=== PATIENT | female | born 1945 | race Caucasian/White ===

== ENCOUNTER 2016-04-29 09:41 | Outpatient (RCR) | payer BC ==
--- OUTSIDE RECORDS SUMMARY | 2016-02-03 09:06 | XMS REPORT | Continuity of Care Document ---
Author Author [facility] Organization [facility] Address Unknown Phone Unavailable Support Name Relationship Address Phone DWAYNE SPARKS MD Caregiver [address] [place] [address] KIANA LEVIN DO Caregiver [address] [place] [address] DIANE BULLOCK Next Of Kin [address] [place] [address] Insurance Providers Payer Name Policy Number Subscriber Name Relationship [facility] [id number] Carolyn Bullock 20 Self / Same As Patient Advance Directives Directive Response Recorded Date/Time Advance Directives No 06/11/14 11:05am Health Care Power of Library Aide No 06/11/14 11:05am Organ Donor Yes 06/11/14 11:05am Resuscitation Status Full Code 06/11/14 11:05am Problems No known problems or medical conditions. Medications Medication Dose Route Sig Days/Qty Instructions Order Date Discontinued Date Status Calcium Carbonate/Vitamin D3 1 Each PO DAILY 01/17/12 Active [place]-3 Fatty Acids/Fish Oil 1 Each PO DAILY 01/17/12 Active Amlodipine/Benazepril HCl 1 Each PO DAILY 01/17/12 Active Simvastatin 40 Mg PO BEDTIME 01/17/12 Active Acetaminophen/Hydrocodone Bitart 1 - 2 Ea PO Q4HR PRN 30 Qty 01/19/12 06/11/14 Discontinued Hydrochlorothiazide 25 Mg GT DAILY 06/09/14 Active Potassium Chloride 20 Meq PO DAILY 06/09/14 Active Social History Social History Problem Response Recorded Date/Time Recent Foreign Travel No 06/11/2014 11:05am Smoking Status Former Smoker 06/11/2014 11:05am Query Response Start Date Stop Date Smoking Status Former Smoker 05/01/1975 Hospital Discharge Instructions No hospital discharge instructions. Plan of Care No plan of care. Functional Status No functional status results. Allergies, Adverse Reactions, Alerts Allergen Type Severity Reaction Status Last Updated No Known Drug Allergies Active 01/17/12 Immunizations Name Given Type Date of Pneumonia Vaccine 04/16/14 Historical Date of Influenza Vaccine 02/11/14 Historical Vital Signs Acute Vital Signs Vital Response Date/Time Temperature (Fahrenheit) 97.7 degrees F (97.6 - 99.5) Temperature (Calculated Celsius) 36.74415 degrees C (36.4 - 37.5) Temperature Source Tympanic Pulse Rate (adult) 75 bpm (60 - 90) Respiratory Rate 18 bpm (12 - 24) O2 Sat by Pulse Oximetry 97 % (88 - 100) Blood Pressure 120/71 mm Hg Pain Pain Intensity 0 Height (Feet) 5 feet Height (Inches) 10.00 inches Height (Calculated Centimeters) 177.773166 cm Weight (Pounds) 247 pounds Weight (Calculated Grams) 007655.317 gm Weight (Calculated Kilograms) 112.575976 kilograms Height 5 ft 10 in Weight 247 lb Body Mass Index 35.4 kg/m^2 Results Laboratory Results Test Name Result Units Flags Reference Collection Date/Time Result Date/ Time Comments White Blood Count 4.3 10^3/uL 4.3-11.0 05/20/2014 8:05/20/2014 8: 36am Red Blood Count 4.56 10^6/uL 4.35-5.85 05/20/2014 8:05/20/2014 8: 36am Hemoglobin 13.8 G/DL 11.5-16.0 05/20/2014 8:05/20/2014 8:36am Hematocrit 41 % 35-52 05/20/2014 8:05/20/2014 8:36am Mean Corpuscular Volume 90 FL 80-99 05/20/2014 8:05/20/2014 8: 36am Mean Corpuscular Hemoglobin 30 PG 25-34 05/20/2014 8:05/20/2014 8: 36am Mean Corpuscular Hemoglobin Concent 34 G/DL 32-36 05/20/2014 8: 8:36am Red Cell Distribution Width 12.0 % 10.0-14.5 05/20/2014 8:2014 8:36am Platelet Count 335 10^3/uL 130-400 05/20/2014 8:05/20/2014 8:36am Mean Platelet Volume 9.2 FL 7.4-10.4 05/20/2014 8:05/20/2014 8: 36am Neutrophils (%) (Auto) 69 % 42-75 05/20/2014 8:05/20/2014 8:36am Lymphocytes (%) (Auto) 19 % 12-44 05/20/2014 8:05/20/2014 8:36am Monocytes (%) (Auto) 8 % 0-12 05/20/2014 8:05/20/2014 8:36am Eosinophils (%) (Auto) 4 % 0-10 05/20/2014 8:05/20/2014 8:36am Basophils (%) (Auto) 1 % 0-10 05/20/2014 8:05/20/2014 8:36am Neutrophils # (Auto) 2.9 X 10^3 1.8-7.8 05/20/2014 8:05/20/2014 8: 36am Lymphocytes # (Auto) 0.8 X 10^3 L 1.0-4.0 05/20/2014 8:05/20/2014 8: 36am Monocytes # (Auto) 0.3 X 10^3 0.0-1.0 05/20/2014 8:05/20/2014 8: 36am Eosinophils # (Auto) 0.2 10^3/uL 0.0-0.3 05/20/2014 8:05/20/2014 8 :36am Basophils # (Auto) 0.0 10^3/uL 0.0-0.1 05/20/2014 8:05/20/2014 8: 36am Sodium Level 138 MMOL/L 135-145 05/20/2014 8:05/20/2014 9:03am Potassium Level 3.7 MMOL/L 3.6-5.0 05/20/2014 8:05/20/2014 9:03am Chloride Level 105 MMOL/L 98-107 05/20/2014 8:05/20/2014 9:03am Carbon Dioxide Level 25 MMOL/L 21-32 05/20/2014 8:05/20/2014 9: 03am Blood Urea Nitrogen 12 MG/DL 7-18 05/20/2014 8:05/20/2014 9:03am Creatinine 0.90 MG/DL 0.60-1.30 05/20/2014 8:05/20/2014 9:03am BUN/Creatinine Ratio 13 05/20/2014 8:05/20/2014 9:03am Estimat Glomerular Filtration Rate > 60 05/20/2014 8:2014 9:03am GFR INTERPRETIVE DATA UNITS FOR ESTIMATED GFR (eGFR): mL/min/1.73 M2 REFERENCE RANGE FOR ESTIMATED GFR (eGFR) eGFR NORMAL eGFR >60 MODERATELY DECREASED eGFR 30-59 SEVERLY DECREASED eGFR 15-29 KIDNEY FAILURE <15 (OR DIALYSIS) Glucose Level 123 MG/DL H 70-105 05/20/2014 8:05/20/2014 9:03am Calcium Level 9.9 MG/DL 8.5-10.1 05/20/2014 8:05/20/2014 9:03am Total Bilirubin 0.6 MG/DL 0.1-1.0 05/20/2014 8:05/20/2014 9:03am Alkaline Phosphatase 68 U/L 40-136 05/20/2014 8:05/20/2014 9:03am Aspartate Amino Transf (AST/SGOT) 18 U/L 5-34 05/20/2014 8:2014 9:03am Alanine Aminotransferase (ALT/SGPT) 26 U/L 0-55 05/20/2014 8:05/20 9:03am Total Protein 7.3 G/DL 6.4-8.2 05/20/2014 8:05/20/2014 9:03am Albumin 4.1 G/DL 3.2-4.5 05/20/2014 8:05/20/2014 9:03am Triglycerides Level 143 MG/DL <150 05/20/2014 8:05/20/2014 9:04am Cholesterol Level 154 MG/DL < 200 05/20/2014 8:05/20/2014 9:04am HDL Cholesterol 38 MG/DL L 40-60 05/20/2014 8:2015 9:04am LDL Cholesterol Direct 94 MG/DL 1-129 05/20/2014 8:28am 05/20/2014 9: 04am VLDL Cholesterol 29 MG/DL 5-40 05/20/2014 8:28am 05/20/2014 9:04am Procedures Procedure Status Date Provider(s) COLONOSCOPY AND BIOPSY completed 06/09/14 DWAYNE SPARKS MD Examination under anesthesia completed 06/11/14 DWAYNE SPARKS MD Cardiac event recording completed 06/11/14 ANSHU JOHNSON HEDGE FUND ACCOUNTANT Tracing only of electrocardiogram completed 06/11/14 ANSHU JOHNSON HEDGE FUND ACCOUNTANT Encounters Encounter Location Date/Time Registered Surgical Day Care [facility] 06/11/14 11:03am Registered Clinic [facility] 06/11/14 8:33am Registered Clinic [facility] 06/10/14 2:16pm Registered Surgical Day Care [facility] 06/09/14 10:51am Registered Clinic [facility] 06/05/14 5:48am Registered Recurring [facility] 06/03/14 11:00am Registered Clinic [facility] 05/20/14 7:55am Registered Clinic [facility] 05/20/14 7:52am
[~2016-04-29 09:41] MED LIST: AMLO1CAP4 PO; AMLO1CAP8 PO; AMLO5TAB2 PO; CALC625T PO; CALTRATE 600 +1 EACH PO; HCT25T GT; HYDR-3454 PO; HYDR-3583 PO; HYDR12.56 PO; L.AC1CAP6 PO; OMEG1CAP51 PO; POTA20TA15 PO; SIMV20TA3 PO; SIMV40TA4 PO
[2016-04-29 10:03] LABS: BASOPHILS % (AUTO) 1 % (0-10); EOSINOPHILS # (AUTO) 0.1 10^3/uL (0.0-0.3); EOSINOPHILS % (AUTO) 2 % (0-10); LYMPHOCYTES % (AUTO) 23 % (12-44); MEAN CORPUSCULAR HEMOGLOBIN 31 PG (25-34); MEAN CORPUSCULAR HGB CONC 34 G/DL (32-36); MEAN CORPUSCULAR VOLUME 91 FL (80-99); MEAN PLATELET VOLUME 10.1 FL (7.4-10.4); MONOCYTES # (AUTO) 0.4 X 10^3 (0.0-1.0); MONOCYTES % (AUTO) 9 % (0-12); NEUTROPHILS % (AUTO) 65 % (42-75); PLATELET COUNT 200 10^3/uL (130-400); RED BLOOD COUNT 4.33 10^6/uL (4.35-5.85); RED CELL DISTRIBUTION WIDTH 12.5 % (10.0-14.5); WHITE BLOOD COUNT 4.6 10^3/uL (4.3-11.0)
[2016-04-29 10:30] LABS: ALANINE AMINOTRANSFERASE 23 U/L (0-55); ALBUMIN 4.3 G/DL (3.2-4.5); ANION GAP 10 MMOL/L (5-14); ASPARTATE AMINO TRANSFERASE 21 U/L (5-34); BILIRUBIN,TOTAL 0.8 MG/DL (0.1-1.0); BLOOD UREA NITROGEN 20 MG/DL (7-18); BUN/CREATININE RATIO 26; CALCIUM 9.5 MG/DL (8.5-10.1); CARBON DIOXIDE 20 MMOL/L (21-32); CHLORIDE 108 MMOL/L (98-107); CREATININE SERUM 0.77 MG/DL (0.60-1.30); GFR ESTIMATED > 60; GLUCOSE 87 MG/DL (70-105); POTASSIUM 3.9 MMOL/L (3.6-5.0); SODIUM 138 MMOL/L (135-145); TOTAL PROTEIN 6.8 G/DL (6.4-8.2)
== END 2016-05-03 | disposition home or self-care (01) ==
LOC: ONC 09:41
PROVIDERS: ATTEND Internal Medicine Hematology & Oncology
DX: C20 Malignant neoplasm of rectum (principal); E04.1 Nontoxic single thyroid nodule; I10 Essential (primary) hypertension; E78.5 Hyperlipidemia, unspecified; Z79.899 Other long term (current) drug therapy; Z45.2 Encounter for adjustment and management of vascular access device
CPT/HCPCS: 36591; 80053; 82378; 85025; 96523; 99213

== ENCOUNTER → 2016-05-09 | Outpatient (CLI) | payer MEDICARE, OTHER ==
[~2016-05-09] MED LIST changes: +BARIUM SUSPENSION 2.1% (VANILLA SILQ) 450 ML PO ONE; +BENA20TA2 PO; +CATHETER FLUSH 10 ML SYR IV PRN; +IOHEXOL 350 MG/ML 100 ML (OMNIPAQUE 350) VIAL IV ONE; +LOPE-134 PO; +MULT1CAP27 PO; +NS 100 ML (IVPB) BAG IV ONE
--- OUTSIDE RECORDS SUMMARY | 2016-05-09 10:05 | XMS REPORT | Continuity of Care Document ---
Author Author [facility] Organization [facility] Address Unknown Phone Unavailable Support Name Relationship Address Phone DWAYNE SPARKS MD Caregiver [address] [place] [address] KIANA LEVIN DO Caregiver [address] [place] [address] DIANE BULLOCK Next Of Kin [address] [place] [address] Insurance Providers Payer Name Policy Number Subscriber Name Relationship [facility] [id number] Carolyn Bullock 20 Self / Same As Patient Advance Directives Directive Response Recorded Date/Time Advance Directives No 06/11/14 11:05am Health Care Power of Healthcare Insurance Sales Agent No 06/11/14 11:05am Organ Donor Yes 06/11/14 11:05am Resuscitation Status Full Code 06/11/14 11:05am Problems No known problems or medical conditions. Medications Medication Dose Route Sig Days/Qty Instructions Order Date Discontinued Date Status Calcium Carbonate/Vitamin D3 1 Each PO DAILY 01/17/12 Active [place]-3 Fatty Acids/Fish Oil 1 Each PO DAILY [...] F (97.6 - 99.5) Temperature (Calculated Celsius) 36.13796 degrees C (36.4 - 37.5) Temperature Source Tympanic Pulse Rate (adult) 75 bpm (60 - 90) Respiratory Rate 18 bpm (12 - 24) O2 Sat by Pulse Oximetry 97 % (88 - 100) Blood Pressure 120/71 mm Hg Pain Pain Intensity 0 Height (Feet) 5 feet Height (Inches) 10.00 inches Height (Calculated Centimeters) 177.508757 cm Weight (Pounds) 247 pounds Weight (Calculated Grams) 619638.317 gm Weight (Calculated Kilograms) 112.506992 kilograms Height 5 ft 10 in Weight [...] Cardiac event recording completed 06/11/14 ANSHU JOHNSON JEWEL STRIPPER Tracing only of electrocardiogram completed 06/11/14 ANSHU JOHNSON JEWEL STRIPPER Encounters Encounter Location Date/Time Registered Surgical Day Care [facility] 06/11/14 11:03am Registered Clinic [facility] 06/11/14 8:33am Registered Clinic [facility] 06/10/14 2:16pm Registered Surgical Day Care [facility] 06/09/14 10:51am Registered Clinic [facility] 06/05/14 5:48am Registered Recurring [facility] 06/03/14 11:00am Registered Clinic [facility] 05/20/14 7:55am Registered Clinic [facility] 05/20/14 7:52am
--- NOTE | 2016-05-09 13:41 | Diagnostic Imaging Report ---
PROCEDURE: CT chest, abdomen, and pelvis with contrast. TECHNIQUE: Multiple contiguous axial images were obtained through the chest, abdomen, and pelvis after the administration of intravenous contrast. INDICATION: Breast cancer and rectal cancer. COMPARISON: CT chest, abdomen and pelvis of 11/06/2015 and 08/15/14. CT CHEST FINDINGS: Stable heterogeneous enlargement of the left thyroid gland which extends into the superior aspect of the mediastinum. No supraclavicular or axillary lymphadenopathy. Stable left pectoral subclavian Port-A-Cath. No mediastinal, hilar or juxtaphrenic lymphadenopathy. Normal heart size without pericardial effusion. Normal-caliber thoracic aorta with scattered atherosclerotic calcifications. No pleural effusion or pneumothorax. No pulmonary mass or consolidation. No suspicious pulmonary nodules that would suggest parenchymal metastases. No endoluminal lesion within the trachea or central bronchi. No concerning osseous lesions in the thorax. IMPRESSION: 1. Stable CT chest without evidence of metastatic disease. 2. Asymmetrically enlarged left thyroid goiter resulting in tracheal deviation is unchanged. CT ABDOMEN AND PELVIS FINDINGS: The liver, spleen, pancreas and adrenals are normal. Cholelithiasis without evidence of acute cholecystitis is unchanged. Kidneys enhance symmetrically without suspicious mass lesion. Cysts in the upper pole of the left kidney are unchanged. No obstructive uropathy. Urinary bladder is distended without wall thickening. Status post hysterectomy. Continued decreased size of left ovarian cyst now measuring 1.5 x 1.2 cm (previously 2.2 x 1.8 cm). No bowel obstruction. Stomach is partially distended with contrast material and there is no discrete gastric wall thickening. Status post partial colon resection with colocolonic anastomosis in the distal colon. No soft tissue mass lesion near the anastomosis to indicate localized recurrence. No abdominal or pelvic lymphadenopathy. Normal-caliber abdominal aorta with moderate atherosclerotic disease. No concerning osseous lesions in the abdomen or pelvis. IMPRESSION: 1. Stable CT abdomen and pelvis without evidence of local recurrence or intra-abdominal metastases. 2. Cholelithiasis. 3. Continued decreased size of small left ovarian cyst. Dictated by: Dictated on workstation # [id number]
== END ==
LOC: RAD 10:02
PROVIDERS: ATTEND Internal Medicine Hematology & Oncology
DX: C20 Malignant neoplasm of rectum (principal); C21.1 Malignant neoplasm of anal canal
CPT/HCPCS: 71260; 74177

== ENCOUNTER 2016-06-30 05:34 | Outpatient (CLI) | payer MEDICARE, OTHER ==
[~2016-06-30] VITALS: Ht 177.8 cm; Wt 88.5 kg
[~2016-06-30 05:34] MED LIST changes: -BARIUM SUSPENSION 2.1% (VANILLA SILQ) 450 ML PO ONE; -BENA20TA2 PO; -CATHETER FLUSH 10 ML SYR IV PRN; -IOHEXOL 350 MG/ML 100 ML (OMNIPAQUE 350) VIAL IV ONE; -LOPE-134 PO; -MULT1CAP27 PO; -NS 100 ML (IVPB) BAG IV ONE
--- OUTSIDE RECORDS SUMMARY | 2016-06-30 05:38 | XMS REPORT | Continuity of Care Document ---
Author Author [facility] Organization [facility] Address Unknown Phone Unavailable Support Name Relationship Address Phone DWAYNE SPARKS MD Caregiver [address] [place] [address] KIANA LEVIN DO Caregiver [address] [place] [address] DIANE BULLOCK Next Of Kin [address] [place] [address] Insurance Providers Payer Name Policy Number Subscriber Name Relationship [facility] [id number] Carolyn Bullock 20 Self / Same As Patient Advance Directives Directive Response Recorded Date/Time Advance Directives No 06/11/14 11:05am Health Care Power of Escalator Constructor No 06/11/14 11:05am Organ Donor Yes 06/11/14 11:05am Resuscitation Status Full Code 06/11/14 11:05am Problems No known problems or medical conditions. Medications Medication Dose Route Sig Days/Qty Instructions Order Date Discontinued Date Status Calcium Carbonate/Vitamin D3 1 Each PO DAILY 01/17/12 Active [place]-3 Fatty Acids/Fish Oil 1 Each PO DAILY [...] F (97.6 - 99.5) Temperature (Calculated Celsius) 36.68259 degrees C (36.4 - 37.5) Temperature Source Tympanic Pulse Rate (adult) 75 bpm (60 - 90) Respiratory Rate 18 bpm (12 - 24) O2 Sat by Pulse Oximetry 97 % (88 - 100) Blood Pressure 120/71 mm Hg Pain Pain Intensity 0 Height (Feet) 5 feet Height (Inches) 10.00 inches Height (Calculated Centimeters) 177.159104 cm Weight (Pounds) 247 pounds Weight (Calculated Grams) 454814.317 gm Weight (Calculated Kilograms) 112.891191 kilograms Height 5 ft 10 in Weight [...] Cardiac event recording completed 06/11/14 ANSHU JOHNSON VEGETABLE FARMWORKER Tracing only of electrocardiogram completed 06/11/14 ANSHU JOHNSON VEGETABLE FARMWORKER Encounters Encounter Location Date/Time Registered Surgical Day Care [facility] 06/11/14 11:03am Registered Clinic [facility] 06/11/14 8:33am Registered Clinic [facility] 06/10/14 2:16pm Registered Surgical Day Care [facility] 06/09/14 10:51am Registered Clinic [facility] 06/05/14 5:48am Registered Recurring [facility] 06/03/14 11:00am Registered Clinic [facility] 05/20/14 7:55am Registered Clinic [facility] 05/20/14 7:52am
[2016-06-30] MEDS ORDERED: MULT1CAP27 PO (10:01)
[2016-06-30] MEDS ORDERED: BENA20TA2 PO (10:01)
[2016-06-30] MEDS ORDERED: LOPE-134 PO (10:01)
== END 2016-06-30 10:03 ==
LOC: PREOP 05:34
PROVIDERS: ATTEND Surgery
DX: Z01.818 Encounter for other preprocedural examination (principal); C20 Malignant neoplasm of rectum

== ENCOUNTER 2016-07-04 06:59 | Day surgery (SDC) | payer MEDICARE, OTHER ==
[~2016-07-04] VITALS: Ht 177.8 cm; Wt 88.5 kg
[~2016-07-04 06:59] MED LIST changes: +BENA20TA2 PO; +LOPE-134 PO; +MULT1CAP27 PO
--- OUTSIDE RECORDS SUMMARY | 2016-07-04 07:03 | XMS REPORT | Continuity of Care Document ---
Author Author [facility] Organization [facility] Address Unknown Phone Unavailable Care Team Providers Care Manager Room Name Role Phone KIANA LEVIN DO PCP Insurance Providers Payer Name Policy Number Subscriber Name Relationship [employer] [id number] Carolyn Bullock 20 Self / Same As Patient Enter Insurance Name [id number] Carolyn Bullock Self / Same As Patient Advance Directives Directive Response Recorded Date/Time Advance Directives Yes 06/30/16 9:56am Health Care Power of Retail Sales Assistant Yes 06/30/16 9:56am Organ Donor Yes 06/30/16 9:56am Resuscitation Status Full Code 06/30/16 9:56am Problems No problem information available. Medications Current Home Medications Medication Dose Units Route Directions Days/Qty Instructions Start Date Calcium Carbonate/Vitamin D3 1 Each 1 Each Oral Every Other Day 17/04 [place]-3 Fatty Acids/Fish Oil 1 Each 1 Each Oral Daily 01/17/12 Simvastatin 20 Mg 20 Mg Oral Bedtime 06/19/15 L.acidoph & Paracasei,B.lactis 1 Each 1 Each Oral Daily 06/19/15 Benazepril Hcl 20 Mg 20 Mg Oral Daily 06/30/16 Multivitamin 1 Each 1 Each Oral Daily 06/30/16 Loperamide Hcl 2 Mg 1 Mg Oral Three Times A Day After Meals take 1/2 of 2mg tab 06/30/16 Past Home Medications Medication Directions Ordered Status Amlodipine/Benazepril Hcl 1 Each Capsule, 1 Each Oral Daily 01/17/12 Discontinued Simvastatin 40 Mg Tablet, 40 Mg Oral Bedtime 01/17/12 Discontinued Acetaminophen/Hydrocodone Bitart 1 Tab Tab, 1 - 2 Ea Oral Q4hr Prn 01/19/12 Discontinued Hydrochlorothiazide 25 Mg Tab, 25 Mg G Tube Daily 06/09/14 Discontinued Potassium Chloride 20 Meq Tab.prt.sr, 20 Meq Oral Daily 06/09/14 Discontinued Amlodipine Besylate/Benazepril 1 Each Capsule, 1 Each Oral Daily 06/19/15 Discontinued Calcium Polycarbophil 625 Mg Tablet, 1250 Mg Oral Three Times A Day 06/19/15 Discontinued Amlodipine Besylate 5 Mg Tablet, 5 Mg Oral Daily 12/14/15 Discontinued Hydrocodone/Acetaminophen 1 Each Tablet, 1 Each Oral Every 4HRS as needed for Pain 12/16/15 Discontinued Social History Social History Problem Response Recorded Date/Time Alcohol Use Rarely Uses 06/30/2016 9:56am Recreational Drug Use No 06/30/2016 9:56am Recent Foreign Travel No 06/30/2016 9:56am Recent Infectious Disease Exposure No 06/30/2016 9:56am Sexually Transmitted Disease No 06/30/2016 9:56am HIV/AIDS No 06/30/2016 9:56am Smoking Status Former Smoker 06/30/2016 9:56am Do you dip or chew tobacco? No 06/22/2015 7:51am Type Used Cigarettes 06/30/2016 9:56am Recent Hopitalizations No 06/30/2016 9:56am Sexually Transmitted Disease No 06/30/2016 9:56am Hx Sexually Transmitted Disorders No 06/11/2014 11:05am Query Response Start Date Stop Date Smoking Status Former Smoker Hospital Discharge Instructions No hospital discharge instructions. Plan of Care Discharge Date 06/30/16 10:03am Prescriptions See Medication Section Functional Status No functional status results. Allergies, Adverse Reactions, Alerts No known allergies. Immunizations No immunization records. Vital Signs Acute Vital Signs Vital Response Date/Time Height (Feet) 5 feet 06/30/2016 9:55am Height (Inches) 10.00 inches 06/30/2016 9:55am Height (Calculated Centimeters) 177.097220 cm 06/30/2016 9:55am Weight (Pounds) 195 pounds 06/30/2016 9:55am Weight (Ounces) 0.0 oz 06/30/2016 9:55am Weight (Calculated Grams) 07383.51 gm 06/30/2016 9:55am Weight (Calculated Kilograms) 88.139953 kilograms 06/30/2016 9:55am Calculated BMI 28.0 06/30/2016 9:55am Results No known relevant diagnostic tests, laboratory data and/or discharge summary. Procedures No known history of procedures. Encounters Encounter Location Arrival/Admit Date Discharge/Depart Date Attending Provider Registered Clinic [facility] 06/30/16 5:34am DWAYNE SPARKS MD Registered Recurring [facility] 06/09/16 11:33am SHERWIN NOLAN MD
--- OUTSIDE RECORDS SUMMARY | 2016-07-04 07:03 | XMS REPORT | Continuity of Care Document ---
Author Author [facility] Organization [facility] Address Unknown Phone Unavailable Care Team Providers Care Rubber Boots And Shoes Repairer Name Role Phone KIANA LEVIN DO PCP Insurance Providers Payer Name Policy Number Subscriber Name Relationship [employer] [id number] Carolyn Bullock 20 Self / Same As Patient Enter Insurance Name [id number] Carolyn Bullock Self / Same As Patient Advance Directives Directive Response Recorded Date/Time Advance Directives Yes 06/30/16 9:56am Health Care Power of Screening Unit Registered Nurse Yes 06/30/16 9:56am Organ Donor Yes 06/30/16 9:56am Resuscitation Status Full Code 06/30/16 9:56am Problems No problem information available. Medications Current Home Medications Medication Dose Units Route Directions Days/Qty Instructions Start Date Calcium Carbonate/Vitamin D3 1 Each 1 Each Oral Every Other Day 17/04 [place]-3 Fatty Acids/Fish Oil 1 Each 1 Each [...] 10.00 inches 06/30/2016 9:55am Height (Calculated Centimeters) 177.828943 cm 06/30/2016 9:55am Weight (Pounds) 195 pounds 06/30/2016 9:55am Weight (Ounces) 0.0 oz 06/30/2016 9:55am Weight (Calculated Grams) 34445.51 gm 06/30/2016 9:55am Weight (Calculated Kilograms) 88.953461 kilograms 06/30/2016 9:55am Calculated BMI 28.0 06/30/2016 9:55am Results No known relevant diagnostic tests, laboratory data and/or discharge summary. Procedures No known history of procedures. Encounters Encounter Location Arrival/Admit Date Discharge/Depart Date Attending Provider Registered Clinic [facility] 06/30/16 5:34am DWAYNE SPARKS MD Registered Recurring [facility] 06/09/16 11:33am SHERWIN NOLAN MD
[2016-07-04] MEDS ORDERED: NALOXONE 0.4 MG/ML 1 ML (NARCAN) VIAL IVP PRN (07:30)
[2016-07-04] MEDS ORDERED: FLUMAZENIL (ROMAZICON) 0.1 MG/ML 5 ML VIAL INJ PRN (07:30)
[2016-07-04] MEDS ORDERED: NS IV 500 ML 500 ML IV PRN (07:35)
[2016-07-04 07:40] VITALS: BP 147/91
[2016-07-04] MEDS ORDERED: MIDAZOLAM 2 MG/2 ML (VERSED) VIAL ONE ×3 (07:46→08:25)
[2016-07-04] MEDS ORDERED: fentaNYL INJECTION 100 MCG/2 ML AMP ONE (07:47)
[2016-07-04] MEDS: fentaNYL INJECTION 100 MCG/2 ML AMP IVP PRN ×2 (08:17→08:25)
[2016-07-04] MEDS: MIDAZOLAM 2 MG/2 ML (VERSED) VIAL IVP PRN ×3 (08:18→08:33)
--- NOTE | 2016-07-04 08:19 | Pre-Op Note & Conscious Sedat ---
Pre-Operative Progress Note H&P Reviewed The H&P was reviewed, patient examined and no changes noted. Date H&P Reviewed: Jul 04, 2016 Time H&P Reviewed: 08:18 Pre-Op Diagnosis: personal history of rectal cancer Conscious Sedation Pre-Proced ASA Class: 2 Airway Mallampati Classification: ([place] appropriate class) I. II. III, IV Lungs Heart ASA score ASA 1: a normal healthy patient ASA 2: a patient with a mild systemic disease (mid diabetes, controlled hypertension, obesity ASA 3: a patient with a severe systemic disease that limits activity (angina , COPD, prior Myocardial infarction) ASA 4: a patient with an incapacitating disease that is a constant threat to life (CHF, renal failure) ASA 5: a moribund patient not expected to survive 24 hrs. (ruptured aneurysm) ASA 6: a declared brain patient whose organs are being harvested. For emergent operations, add the letter E after the classification Grade 1 Sedation Plan: Discussed options with patient/fam Note The patient is an appropriate candidate to undergo the planned procedure, sedation, and anesthesia. The patient immediately re-assessed prior to indication. DWAYNE SPARKS MD Jul 04, 2016 8:19 am
--- NOTE | 2016-07-04 08:41 | Progress Note-Post Operative ---
Post-Operative Progess Note Pre-Operative Diagnosis personal history of rectal cancer Post-Operative Diagnosis internal hemorrhoids. Diffuse diverticulosis. Patent stapled anastomosis Post-Op Procedure Note Date of Procedure: Jul 04, 2016 Name of Procedure: colonoscopy to cecum Anesthesia Type sedation DWAYNE SPARKS MD Jul 04, 2016 8:41 am
--- NOTE | 2016-07-04 08:42 | Discharge Inst-Simple/Standard ---
Discharge Inst-Standard Discharge Medications New, Converted or Re-Newed RX: Other Patient Instructions/Follow Up Plan of Care/Instructions/FU: repeat colonoscopy in one year Activity as Tolerated: Yes Discharge Diet: No Restrictions DWAYNE SPARKS MD Jul 04, 2016 8:42 am
[2016-07-04 08:50] VITALS: BP 120/67
--- NOTE | 2016-07-04 09:15 | PROCEDURE REPORT ---
PROCEDURE PHYSICIAN: DWAYNE SPARKS DATE OF PROCEDURE: 07/04/2016 PROCEDURE: Surveillance colonoscopy. SURGEON: Dr. Sparks. 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 She came in for surveillance colonoscopy. Informed consent was obtained after reviewing the procedure in detail. DESCRIPTION OF PROCEDURE: She was placed in left lateral decubitus position and her vital signs were monitored. Conscious sedation was achieved using Versed and fentanyl. Digital rectal examination was unremarkable. The colonoscope was then introduced into the rectum and advanced to the cecum. It was then withdrawn slowly and the mucosa examined in a systematic fashion. The quality of bowel preparation was excellent. FINDINGS: 1. Internal hemorrhoids. 2. A patent anastomosis without any local recurrence. 3. Diffuse diverticulae. She tolerated the procedure well and was taken back to the nursing area in a stable condition. IMPRESSION: 1. Previous rectal carcinoma. 2. No polyps. 3. Recommend annual colonoscopy. Job ID: [id number] Dictated Date: 07/04/2016 08:40:28 Gaming Department Head Date: 07/04/2016 09:06:43 / tere KENT
[2016-07-04 09:20] VITALS: BP 121/73
[2016-07-04 09:30] VITALS: BP 121/73
== END 2016-07-04 09:30 | disposition home or self-care (01) ==
LOC: ENDO 06:59
PROVIDERS: ATTEND Surgery
DX: Z09 Encounter for follow-up examination after completed treatment for conditions other than malignant neoplasm (principal); Z85.048 Personal history of other malignant neoplasm of rectum, rectosigmoid junction, and anus; K64.8 Other hemorrhoids; K57.90 Diverticulosis of intestine, part unspecified, without perforation or abscess without bleeding

== ENCOUNTER → 2016-07-25 | Outpatient (CLI) | payer MEDICARE, OTHER ==
--- NOTE | 2016-07-25 11:33 | Diagnostic Imaging Report ---
PROCEDURE: US Carotid Duplex Bilateral. TECHNIQUE: Multiple real-time grayscale images were obtained over the carotid arteries in various projections bilaterally. Additional duplex Doppler and color Doppler images were also obtained. INDICATION: Carotid bruit. FINDINGS: There is a calcified atherosclerotic plaque along the carotid bifurcation seen more prominent on the right side. There is antegrade flow demonstrated in the vertebral arteries bilaterally. Color Doppler demonstrates patency of the common, internal and external carotid arteries bilaterally. Peak systolic velocities in the right ICA are 101, 101 and 81 cm/s from proximal to distal and on the left 103, 93, and 97 cm/s. ICA/CCA ratios are up to 0.8 on the right and also 0.8 on the left. IMPRESSION: Atherosclerotic plaque seen at the carotid bifurcation bilaterally with estimated underlying stenosis less than 40% bilaterally. Dictated by: Dictated on workstation # [id number]
== END ==
LOC: RAD 08:45
PROVIDERS: ATTEND Family Medicine
DX: I65.23 Occlusion and stenosis of bilateral carotid arteries (principal)
CPT/HCPCS: 93880

== ENCOUNTER 2016-08-04 11:19 | Outpatient (RCR) | payer MEDICARE, OTHER ==
--- OUTSIDE RECORDS SUMMARY | 2016-05-12 09:50 | XMS REPORT | Continuity of Care Document ---
Author Author [facility] Organization [facility] Address Unknown Phone Unavailable Support Name Relationship Address Phone DWAYNE SPARKS MD Caregiver [address] [place] [address] KIANA LEVIN DO Caregiver [address] [place] [address] DIANE BULLOCK Next Of Kin [address] [place] [address] Insurance Providers Payer Name Policy Number Subscriber Name Relationship [facility] [id number] Carolyn Bullock 20 Self / Same As Patient Advance Directives Directive Response Recorded Date/Time Advance Directives No 06/11/14 11:05am Health Care Power of Contract Graphic Designer No 06/11/14 11:05am Organ Donor Yes 06/11/14 11:05am Resuscitation Status Full Code 06/11/14 11:05am Problems No known problems or medical conditions. Medications Medication Dose Route Sig Days/Qty Instructions Order Date Discontinued Date Status Calcium Carbonate/Vitamin D3 1 Each PO DAILY 01/17/12 Active [place]-3 Fatty Acids/Fish Oil 1 Each PO DAILY [...] F (97.6 - 99.5) Temperature (Calculated Celsius) 36.79246 degrees C (36.4 - 37.5) Temperature Source Tympanic Pulse Rate (adult) 75 bpm (60 - 90) Respiratory Rate 18 bpm (12 - 24) O2 Sat by Pulse Oximetry 97 % (88 - 100) Blood Pressure 120/71 mm Hg Pain Pain Intensity 0 Height (Feet) 5 feet Height (Inches) 10.00 inches Height (Calculated Centimeters) 177.788809 cm Weight (Pounds) 247 pounds Weight (Calculated Grams) 624641.317 gm Weight (Calculated Kilograms) 112.018060 kilograms Height 5 ft 10 in Weight [...] Cardiac event recording completed 06/11/14 ANSHU JOHNSON RESIDENT PROGRAMS ASSISTANT Tracing only of electrocardiogram completed 06/11/14 ANSHU JOHNSON RESIDENT PROGRAMS ASSISTANT Encounters Encounter Location Date/Time Registered Surgical Day Care [facility] 06/11/14 11:03am Registered Clinic [facility] 06/11/14 8:33am Registered Clinic [facility] 06/10/14 2:16pm Registered Surgical Day Care [facility] 06/09/14 10:51am Registered Clinic [facility] 06/05/14 5:48am Registered Recurring [facility] 06/03/14 11:00am Registered Clinic [facility] 05/20/14 7:55am Registered Clinic [facility] 05/20/14 7:52am
[2016-08-04 11:46] LABS: BASOPHILS % (AUTO) 1 % (0-10); EOSINOPHILS # (AUTO) 0.2 10^3/uL (0.0-0.3); EOSINOPHILS % (AUTO) 4 % (0-10); LYMPHOCYTES % (AUTO) 20 % (12-44); MEAN CORPUSCULAR HEMOGLOBIN 31 PG (25-34); MEAN CORPUSCULAR HGB CONC 34 G/DL (32-36); MEAN CORPUSCULAR VOLUME 91 FL (80-99); MEAN PLATELET VOLUME 10.5 FL (7.4-10.4); MONOCYTES # (AUTO) 0.4 X 10^3 (0.0-1.0); MONOCYTES % (AUTO) 8 % (0-12); NEUTROPHILS # (AUTO) 3.2 X 10^3 (1.8-7.8); NEUTROPHILS % (AUTO) 67 % (42-75); PLATELET COUNT 191 10^3/uL (130-400); RED BLOOD COUNT 4.29 10^6/uL (4.35-5.85); RED CELL DISTRIBUTION WIDTH 12.5 % (10.0-14.5); WHITE BLOOD COUNT 4.7 10^3/uL (4.3-11.0)
[2016-08-04 12:10] LABS: ALANINE AMINOTRANSFERASE 21 U/L (0-55); ALBUMIN 4.1 G/DL (3.2-4.5); ANION GAP 7 MMOL/L (5-14); ASPARTATE AMINO TRANSFERASE 20 U/L (5-34); BILIRUBIN,TOTAL 0.9 MG/DL (0.1-1.0); BLOOD UREA NITROGEN 17 MG/DL (7-18); BUN/CREATININE RATIO 22; CALCIUM 9.4 MG/DL (8.5-10.1); CARBON DIOXIDE 25 MMOL/L (21-32); CHLORIDE 110 MMOL/L (98-107); CREATININE SERUM 0.76 MG/DL (0.60-1.30); GFR ESTIMATED > 60; GLUCOSE 80 MG/DL (70-105); SODIUM 142 MMOL/L (135-145); TOTAL PROTEIN 6.6 G/DL (6.4-8.2)
== END 2016-08-10 | disposition home or self-care (01) ==
LOC: ONC 11:19
PROVIDERS: ATTEND Internal Medicine Hematology & Oncology
DX: C20 Malignant neoplasm of rectum (principal); E04.1 Nontoxic single thyroid nodule; I10 Essential (primary) hypertension; E78.5 Hyperlipidemia, unspecified; Z79.899 Other long term (current) drug therapy; Z45.2 Encounter for adjustment and management of vascular access device
CPT/HCPCS: 80053; 82378; 84443; 85025; 96523; 99213

== ENCOUNTER 2016-11-07 10:38 | Outpatient (RCR) | payer MEDICARE, OTHER ==
[2016-11-07 10:54] LABS: BASOPHILS % (AUTO) 1 % (0-10); EOSINOPHILS # (AUTO) 0.2 10^3/uL (0.0-0.3); EOSINOPHILS % (AUTO) 3 % (0-10); LYMPHOCYTES % (AUTO) 21 % (12-44); MEAN CORPUSCULAR HEMOGLOBIN 31 PG (25-34); MEAN CORPUSCULAR HGB CONC 34 G/DL (32-36); MEAN CORPUSCULAR VOLUME 92 FL (80-99); MEAN PLATELET VOLUME 9.5 FL (7.4-10.4); MONOCYTES # (AUTO) 0.4 X 10^3 (0.0-1.0); MONOCYTES % (AUTO) 8 % (0-12); NEUTROPHILS # (AUTO) 3.3 X 10^3 (1.8-7.8); NEUTROPHILS % (AUTO) 67 % (42-75); PLATELET COUNT 214 10^3/uL (130-400); RED BLOOD COUNT 4.24 10^6/uL (4.35-5.85); RED CELL DISTRIBUTION WIDTH 12.7 % (10.0-14.5); WHITE BLOOD COUNT 4.9 10^3/uL (4.3-11.0)
[2016-11-07 11:31] LABS: ALANINE AMINOTRANSFERASE 21 U/L (0-55); ALBUMIN 4.1 GM/DL (3.2-4.5); ANION GAP 6 MMOL/L (5-14); ASPARTATE AMINO TRANSFERASE 17 U/L (5-34); BILIRUBIN,TOTAL 0.6 MG/DL (0.1-1.0); BLOOD UREA NITROGEN 14 MG/DL (7-18); BUN/CREATININE RATIO 20; CALCIUM 9.4 MG/DL (8.5-10.1); CARBON DIOXIDE 25 MMOL/L (21-32); CHLORIDE 108 MMOL/L (98-107); CREATININE SERUM 0.69 MG/DL (0.60-1.30); GFR ESTIMATED > 60; GLUCOSE 91 MG/DL (70-105); POTASSIUM 3.9 MMOL/L (3.6-5.0); SODIUM 139 MMOL/L (135-145); TOTAL PROTEIN 6.8 GM/DL (6.4-8.2)
== END 2016-11-09 | disposition home or self-care (01) ==
LOC: ONC 10:38
PROVIDERS: ATTEND Internal Medicine Hematology & Oncology
DX: C20 Malignant neoplasm of rectum (principal); E04.1 Nontoxic single thyroid nodule; I10 Essential (primary) hypertension; E78.5 Hyperlipidemia, unspecified; Z79.899 Other long term (current) drug therapy; Z45.2 Encounter for adjustment and management of vascular access device
CPT/HCPCS: 36591; 80053; 82378; 84439; 84443; 85025; 96523; 99213

== ENCOUNTER → 2016-11-08 | Outpatient (CLI) | payer MEDICARE, OTHER ==
[~2016-11-08] MED LIST changes: +BARIUM SUSPENSION 2.1% (VANILLA SILQ) 450 ML PO ONE; +CATHETER FLUSH 10 ML SYR IV PRN; +IOHEXOL 350 MG/ML 100 ML (OMNIPAQUE 350) VIAL IV ONE; +NS 100 ML (IVPB) BAG IV ONE
--- NOTE | 2016-11-08 13:50 | Diagnostic Imaging Report ---
PROCEDURE: CT chest with contrast, CT abdomen and pelvis with and without contrast. TECHNIQUE: Pre and post intravenous contrast axial imaging of the abdomen and pelvis and post contrast axial imaging of the chest were performed. INDICATION: Anorectal carcinoma. COMPARISON: Exam compared to 05/09/2016. FINDINGS: Chest: Heterogeneous enlargement of the left thyroid lobe deviates the trachea to the right in an unchanged fashion. No hilar or mediastinal lymphadenopathy. Some mild zones of subpleural scarring in the dependent lower lobe, stable. No suspicious lung mass or acute infiltrate. No effusion or pneumothorax. No acute soft tissue or osseous chest wall pathology. Abdomen and pelvis: Liver is unremarkable. There is cholelithiasis without features suggestive of acute cholecystitis. There are some bilateral renal parapelvic and cortical cysts, greater left than right. Ureters are unobstructed and well opacified on the delayed images. No stone. There is no abdominopelvic mesenteric or retroperitoneal adenopathy. No findings of bowel, biliary, or urinary tract obstruction. Postsurgical changes at the anorectal junction present without regional mass or fluid collection. No abnormal infiltration or tissue along the pelvic sidewalls. The urinary bladder was normal. No iliac or inguinal lymphadenopathy. There is no ascites. Chronic L5 spondylolysis defects and lumbar spondylosis, chronic. No acute osseous abnormality. IMPRESSION: 1. Chest: Stable left lobe thyroid goiter. No evidence for thoracic metastasis or acute pathology. 2. Abdomen: Cholelithiasis and stable renal cysts. No adenopathy or mass. 3. Pelvis: Stable postoperative change without findings of neoplastic recurrence or metastasis. Dictated by: Dictated on workstation # [id number]
== END ==
LOC: RAD 11:10
PROVIDERS: ATTEND Internal Medicine Hematology & Oncology
DX: K80.20 Calculus of gallbladder without cholecystitis without obstruction (principal); E04.9 Nontoxic goiter, unspecified; N28.1 Cyst of kidney, acquired; Z98.890 Other specified postprocedural states; C21.8 Malignant neoplasm of overlapping sites of rectum, anus and anal canal
CPT/HCPCS: 71260; 74178

== ENCOUNTER → 2016-11-15 | Outpatient (CLI) | payer MEDICARE, OTHER ==
[~2016-11-15] MED LIST changes: -BARIUM SUSPENSION 2.1% (VANILLA SILQ) 450 ML PO ONE; -CATHETER FLUSH 10 ML SYR IV PRN; -IOHEXOL 350 MG/ML 100 ML (OMNIPAQUE 350) VIAL IV ONE; -NS 100 ML (IVPB) BAG IV ONE
--- NOTE | 2016-11-15 16:22 | Diagnostic Imaging Report ---
PROCEDURE: US Thyroid. TECHNIQUE: Multiple real-time grayscale images were obtained of the thyroid in various projections. INDICATION: Left thyroid nodule. COMPARISON: 08/18/2015 FINDINGS: There is a left thyroid mass measuring 5.3 x 2.8 x 4 cm. Internal vascularity is demonstrated. These are similar measurements compared to a prior study of 08/18/2015 allowing for normal measurement variation. The right lobe is 4.2 x 1.4 x 1.2 cm. The left lobe is 6.3 x 3.3 x 4.1 cm in size. IMPRESSION: Unchanged left thyroid mass measuring 5.3 cm. Dictated by: Dictated on workstation # [id number]
== END ==
LOC: RAD 13:05
PROVIDERS: ATTEND Internal Medicine Endocrinology, Diabetes & Metabolism
DX: E04.1 Nontoxic single thyroid nodule (principal)
CPT/HCPCS: 76536

== ENCOUNTER 2016-11-16 08:55 | Outpatient (RCR) | payer MEDICARE, OTHER | END 2016-12-23 08:54 | disposition home or self-care (01) | LOC: ONC 08:55 | PROVIDERS: ATTEND Internal Medicine Hematology & Oncology | DX: C20 Malignant neoplasm of rectum (principal); E04.1 Nontoxic single thyroid nodule; I10 Essential (primary) hypertension; E78.5 Hyperlipidemia, unspecified; Z79.899 Other long term (current) drug therapy | CPT/HCPCS: 99213 ==

== ENCOUNTER → 2017-01-12 | Outpatient (CLI) | payer MEDICARE, OTHER ==
--- NOTE | 2017-01-12 20:20 | Diagnostic Imaging Report ---
Bilateral screening mammogram 2D views with tomosynthesis. The current study was also evaluated with a Computer Aided Detection (CAD) system. Indication: Screening. No current complaints stated on the questionnaire. COMPARISON: 01/12/16. FINDINGS: The breasts are composed of scattered fibroglandular densities, slightly more dense parenchyma is seen in the central aspect of the breasts. There are punctate calcifications seen. Allowing for technique and positional differences, no suspicious change is seen. IMPRESSION: No significant change. ACR BI-RADS Category 2: Benign findings. Result letter will be mailed to the patient. Note: At least 10% of breast cancer is not imaged by mammography. Dictated by: Dictated on workstation # [id number]
== END ==
LOC: RAD 07:20
PROVIDERS: ATTEND Family Medicine
DX: Z12.31 Encounter for screening mammogram for malignant neoplasm of breast (principal)
CPT/HCPCS: 77067

== ENCOUNTER → 2017-01-16 | Outpatient (CLI) | payer MEDICARE, OTHER ==
[2017-01-16 10:04] LABS: CHOLESTEROL 157 MG/DL (< 200); DIRECT LDL 85 MG/DL (1-129); TRIGLYCERIDES 108 MG/DL (<150); VLDL CHOLESTEROL 22 MG/DL (5-40)
== END ==
LOC: LAB 09:24
PROVIDERS: ATTEND Family Medicine
DX: E78.2 Mixed hyperlipidemia (principal)
CPT/HCPCS: 36415; 80061

== ENCOUNTER 2017-01-24 09:45 | Outpatient (RCR) | payer MEDICARE, OTHER ==
[2016-12-23 11:49] LABS: BASOPHILS % (AUTO) 0 % (0-10); EOSINOPHILS # (AUTO) 0.1 10^3/uL (0.0-0.3); EOSINOPHILS % (AUTO) 1 % (0-10); LYMPHOCYTES # (AUTO) 0.9 X 10^3 (1.0-4.0); LYMPHOCYTES % (AUTO) 17 % (12-44); MEAN CORPUSCULAR HEMOGLOBIN 31 PG (25-34); MEAN CORPUSCULAR HGB CONC 34 G/DL (32-36); MEAN CORPUSCULAR VOLUME 92 FL (80-99); MEAN PLATELET VOLUME 9.7 FL (7.4-10.4); MONOCYTES # (AUTO) 0.3 X 10^3 (0.0-1.0); MONOCYTES % (AUTO) 6 % (0-12); NEUTROPHILS # (AUTO) 3.8 X 10^3 (1.8-7.8); NEUTROPHILS % (AUTO) 75 % (42-75); PLATELET COUNT 226 10^3/uL (130-400); RED BLOOD COUNT 4.46 10^6/uL (4.35-5.85); RED CELL DISTRIBUTION WIDTH 12.2 % (10.0-14.5)
[2016-12-23 12:12] LABS: ALANINE AMINOTRANSFERASE 21 U/L (0-55); ALBUMIN 4.3 GM/DL (3.2-4.5); ANION GAP 8 MMOL/L (5-14); ASPARTATE AMINO TRANSFERASE 21 U/L (5-34); BILIRUBIN,TOTAL 0.9 MG/DL (0.1-1.0); BLOOD UREA NITROGEN 14 MG/DL (7-18); BUN/CREATININE RATIO 19; CALCIUM 9.6 MG/DL (8.5-10.1); CARBON DIOXIDE 25 MMOL/L (21-32); CHLORIDE 107 MMOL/L (98-107); CREATININE SERUM 0.74 MG/DL (0.60-1.30); GFR ESTIMATED > 60; GLUCOSE 93 MG/DL (70-105); POTASSIUM 3.9 MMOL/L (3.6-5.0); SODIUM 140 MMOL/L (135-145); TOTAL PROTEIN 6.9 GM/DL (6.4-8.2)
[2017-01-23 10:01] LABS: BASOPHILS % (AUTO) 1 % (0-10); EOSINOPHILS # (AUTO) 0.2 10^3/uL (0.0-0.3); EOSINOPHILS % (AUTO) 3 % (0-10); LYMPHOCYTES # (AUTO) 0.8 X 10^3 (1.0-4.0); LYMPHOCYTES % (AUTO) 15 % (12-44); MEAN CORPUSCULAR HEMOGLOBIN 31 PG (25-34); MEAN CORPUSCULAR HGB CONC 33 G/DL (32-36); MEAN CORPUSCULAR VOLUME 92 FL (80-99); MEAN PLATELET VOLUME 10.1 FL (7.4-10.4); MONOCYTES # (AUTO) 0.4 X 10^3 (0.0-1.0); MONOCYTES % (AUTO) 7 % (0-12); NEUTROPHILS # (AUTO) 4.1 X 10^3 (1.8-7.8); NEUTROPHILS % (AUTO) 74 % (42-75); PLATELET COUNT 188 10^3/uL (130-400); RED CELL DISTRIBUTION WIDTH 12.2 % (10.0-14.5); WHITE BLOOD COUNT 5.4 10^3/uL (4.3-11.0)
[2017-01-23 10:24] LABS: ALANINE AMINOTRANSFERASE 21 U/L (0-55); ALBUMIN 4.1 GM/DL (3.2-4.5); ANION GAP 8 MMOL/L (5-14); ASPARTATE AMINO TRANSFERASE 18 U/L (5-34); BILIRUBIN,TOTAL 0.5 MG/DL (0.1-1.0); BLOOD UREA NITROGEN 18 MG/DL (7-18); BUN/CREATININE RATIO 24; CALCIUM 9.4 MG/DL (8.5-10.1); CARBON DIOXIDE 24 MMOL/L (21-32); CHLORIDE 109 MMOL/L (98-107); CREATININE SERUM 0.74 MG/DL (0.60-1.30); GFR ESTIMATED > 60; GLUCOSE 102 MG/DL (70-105); POTASSIUM 3.8 MMOL/L (3.6-5.0); SODIUM 141 MMOL/L (135-145); TOTAL PROTEIN 6.8 GM/DL (6.4-8.2)
== END 2017-01-28 | disposition home or self-care (01) ==
LOC: ONC 09:45
PROVIDERS: ATTEND Internal Medicine Hematology & Oncology
DX: C20 Malignant neoplasm of rectum (principal); K52.89 Other specified noninfective gastroenteritis and colitis; K64.8 Other hemorrhoids; N83.202 Unspecified ovarian cyst, left side; E04.1 Nontoxic single thyroid nodule; I10 Essential (primary) hypertension; E78.5 Hyperlipidemia, unspecified; Z79.899 Other long term (current) drug therapy; Z92.3 Personal history of irradiation; Z92.21 Personal history of antineoplastic chemotherapy
CPT/HCPCS: 36591; 80053; 82378; 85025; 99213

== ENCOUNTER 2017-05-29 11:38 | Outpatient (RCR) | payer MEDICARE, OTHER | END 2017-06-04 | disposition home or self-care (01) | LOC: ONC 11:38 | PROVIDERS: ATTEND Internal Medicine Hematology & Oncology | DX: Z45.2 Encounter for adjustment and management of vascular access device (principal); C20 Malignant neoplasm of rectum | CPT/HCPCS: 96523 ==

== ENCOUNTER 2017-07-10 05:35 | Outpatient (CLI) | payer MEDICARE, OTHER ==
[~2017-07-10] VITALS: Ht 177.8 cm; Wt 88.5 kg
[~2017-07-10 05:35] MED LIST changes: -ASPI-586 PO; -BARIUM SUSPENSION 2.1% (VANILLA SILQ) 450 ML PO ONE; -BENA5TAB2 PO; -CATHETER FLUSH 10 ML SYR IV PRN; -IOHEXOL 350 MG/ML 100 ML (OMNIPAQUE 350) VIAL IV ONE; -NS 100 ML (IVPB) BAG IV ONE; -OMEG-77 PO; -[UNRECOGNIZED DRUG - CODE] PO
[2017-07-10] MEDS ORDERED: BENA5TAB2 PO (10:34)
[2017-07-10] MEDS ORDERED: OMEG-77 PO (10:34)
[2017-07-10] MEDS ORDERED: [UNRECOGNIZED DRUG - CODE] PO (10:34)
[2017-07-10] MEDS ORDERED: ASPI-586 PO (10:34)
== END 2017-07-10 10:42 ==
LOC: PREOP 05:35
PROVIDERS: ATTEND Surgery
DX: Z01.818 Encounter for other preprocedural examination (principal); Z08 Encounter for follow-up examination after completed treatment for malignant neoplasm; Z85.048 Personal history of other malignant neoplasm of rectum, rectosigmoid junction, and anus

== ENCOUNTER → 2017-07-10 | Outpatient (CLI) | payer MEDICARE, OTHER ==
[~2017-07-10] MED LIST changes: +ASPI-586 PO; +BARIUM SUSPENSION 2.1% (VANILLA SILQ) 450 ML PO ONE; +BENA5TAB2 PO; +CATHETER FLUSH 10 ML SYR IV PRN; +IOHEXOL 350 MG/ML 100 ML (OMNIPAQUE 350) VIAL IV ONE; +NS 100 ML (IVPB) BAG IV ONE; +OMEG-77 PO; +[UNRECOGNIZED DRUG - CODE] PO
--- NOTE | 2017-07-10 12:43 | Diagnostic Imaging Report ---
PROCEDURE: CT chest with contrast, CT abdomen and pelvis with and without contrast. TECHNIQUE: Pre and post intravenous contrast axial imaging of the abdomen and pelvis and post contrast axial imaging of the chest were performed. INDICATION: Anal carcinoma. FINDINGS: The previous CT chest, abdomen, and pelvis exam performed on 11/08/2016 failed to show any sign of an acute abnormality or of metastatic disease related to the patient's diagnosis of anal carcinoma. On this study, the images through the thorax again show the large greater involvement of the left lobe of the thyroid. This finding seems unchanged. The heart size is within normal limits and stable when compared to the prior exam. Coronary artery calcifications are evident. The aorta is not abnormally dilated and there is no sign of dissection. The pulmonary arteries were not fully opacified but there is no definite defect to suggest a pulmonary embolus. There is no mediastinal or hilar adenopathy. The lungs are generally clear and well aerated. There is no sign of failure, pneumonia, or pleural effusion to indicate an acute abnormality. There is no parenchymal lung mass identified. The small pleural-based nodular densities along the posterior aspect of each lower lobe seen previously are again evident and no different. There is no obvious breast mass. The sections through the abdomen and pelvis show that there is a small hiatal hernia. The stomach is otherwise unremarkable. The liver, spleen, pancreas adrenals, aorta, and inferior vena cava are unremarkable for an acute abnormality. The small cysts associated with both kidneys seen previously are again evident and unchanged. The large gallstone within the gallbladder seen on the prior study is also again identified and no different. There is no sign of acute cholecystitis. As noted on the prior exam, the uterus is surgically absent. The urinary bladder is grossly unremarkable. There do appear to be surgical sutures about the distal rectosigmoid colon. There is no pelvic mass or adenopathy identified. The appendix was not well visualized but there are no indirect signs of acute appendicitis. The bone windows show no evidence for fracture or for destructive lesion. As noted previously, there are bilateral pars defects at L5. IMPRESSION: 1. The appearance of the chest, abdomen, and pelvis is stable when compared to the prior exam. No new abnormality has developed and there is no sign of metastatic disease. 2. There is cholelithiasis without evidence for acute cholecystitis. 3. The large suspected goiter involving the left lobe of the thyroid seen previously is again evident and no different. Dictated by: Dictated on workstation # [id number]
== END ==
LOC: RAD 10:49
PROVIDERS: ATTEND Internal Medicine Hematology & Oncology
DX: C21.1 Malignant neoplasm of anal canal (principal); K80.20 Calculus of gallbladder without cholecystitis without obstruction
CPT/HCPCS: 71260; 74178

== ENCOUNTER 2017-07-17 11:16 | Day surgery (SDC) | payer MEDICARE, OTHER ==
[~2017-07-17] VITALS: Ht 177.8 cm; Wt 88.5 kg
[~2017-07-17 11:16] MED LIST changes: +ASPI-586 PO; +BENA5TAB2 PO; +OMEG-77 PO; +[UNRECOGNIZED DRUG - CODE] PO
[2017-07-17] MEDS ORDERED: NS IV 500 ML 500 ML ONE (11:30)
[2017-07-17] MEDS ORDERED: NS IV 500 ML 500 ML IV PRN (11:40)
[2017-07-17 11:42] VITALS: BP 158/96
[2017-07-17] MEDS ORDERED: MIDAZOLAM 2 MG/2 ML (VERSED) VIAL ONE ×3 (11:48)
[2017-07-17] MEDS ORDERED: fentaNYL INJECTION 100 MCG/2 ML AMP ONE (11:49)
[2017-07-17] MEDS: fentaNYL INJECTION 100 MCG/2 ML AMP IVP PRN ×2 (13:22→13:30)
[2017-07-17] MEDS: MIDAZOLAM 2 MG/2 ML (VERSED) VIAL IVP PRN ×3 (13:23→13:31)
--- NOTE | 2017-07-17 13:23 | History & Physicial ---
History of Present Illness History of Present Illness Reason for visit/HPI to undergo surveillance colonoscopy. previous history of rectal carcinoma requiring low anterior resection, proceeded by preoperative chemoradiation Date of Admission 07/17/17 Date Seen by Provider: Jul 17, 2017 Time Seen by Provider: 13:20 I consulted on this patient on 07/17/17 13:20 Attending Physician Dwayne Muller MD Admitting Physician Angie Sloan DO Consult Allergies and Home Medications Allergies Coded Allergies: No Known Drug Allergies (Unverified , 07/10/17) Home Medications Aspirin 81 Mg Tablet.dr, 81 MG PO DAILY, (Reported) Benazepril HCl 20 Mg Tablet, 20 MG PO DAILY, (Reported) Benazepril HCl 5 Mg Tablet, 5 MG PO DAILY, (Reported) Calcium Carbonate/Vitamin D3 1 Each Tablet, 1 EACH PO DAILY, (Reported) L.acidoph & Paracasei,B.lactis 1 Each Capsule, 1 EACH PO DAILY, (Reported) Loperamide HCl 2 Mg Tablet, 1 MG PO TIDPC, (Reported) take 1/2 of 2mg tab Multivitamin 1 Each Capsule, 1 EACH PO DAILY, (Reported) [place]-3 Fatty Acids/Fish Oil 1 Each Capsule, 1 EACH PO DAILY, (Reported) Patient Home Medication List Home Medication List Reviewed: Yes Past Rntswsu-Tbehms-Dnymrc Hx Patient Social History Marrital Status: Employed/Student: retired Alcohol Use: Denies Use Recreational Drug Use: No Smoking Status: Former Smoker Former Smoker, Quit: Dec 14, 1975 Type Used: Cigarettes Recent Foreign Travel: No Contact w/other who traveled: No Recent Hopitalizations: No Immunizations Up To Date Date of Pneumonia Vaccine: Feb 15, 2016 Date of Influenza Vaccine: Feb 13, 2017 Seasonal Allergies Seasonal Allergies: No Surgeries Yes Bowel Surgery, Hysterectomy Respiratory No Cardiovascular Yes Hypertension Neurological No Reproductive System : Yes Hx Reproductive Disorders: No Sexually Transmitted Disease: No HIV/AIDS: No [employer] History: Hysterectomy Genitourinary No Gastrointestinal Yes Chronic Constipation, Chronic Diarrhea Musculoskeletal No Endocrine History of Endocrine Disorders: No HEENT Loss of Vision: Bilateral Hearing Impairment: Denies Cancer Yes Colon Did You Recieve Any Treatments: Yes Type of Treatment: Chemotherapy, Radiation, Surgical Intervention Psychosocial History of Psychiatric Problem: No Blood Transfusions Adverse Reaction to a Blood Tr: No (N/A) Constitutional: no symptoms reported EENTM: no symptoms reported Respiratory: no symptoms reported Cardiovascular: no symptoms reported Gastrointestinal: no symptoms reported Genitourinary: no symptoms reported Musculoskeletal: no symptoms reported Skin: no symptoms reported Psychiatric/Neurological: No Symptoms Reported Physical Exam Vital Signs Vital Signs - First Documented 07/17/17 11:42 Temp 97.0 Pulse 114 Resp 18 B/P (MAP) 158/96 (116) Pulse Ox 98 O2 Delivery Room Air Capillary Refill : General Appearance: No Apparent Distress Neck: Thyromegaly Respiratory: Lungs Clear Cardiovascular: Regular Rate, Rhythm Gastrointestinal: Non Tender, Soft Rectal: Deferred Back: Normal Inspection Extremity: Normal Inspection Neurologic/Psychiatric: Alert, Oriented x3 Skin: Warm/Dry Assessment/Plan Assessment and Plan lady with a previous history of restorative carcinoma. For surveillance colonoscopy. Left thyroid nodule Problems: Admission Diagnosis Admission Status: Other (Outpt Proc) DWAYNE MULLER MD Jul 17, 2017 1:23 pm
--- NOTE | 2017-07-17 13:23 | Conscious Sedation/ASA ---
Conscious Sedation Pre-Proced Time Reviewed: 13:23 ASA Class: 2 Airway Mallampati Classification: (sun'aq appropriate class) I. II. III, IV Lungs Heart ASA score ASA 1: a normal healthy patient ASA 2: a patient with a mild systemic disease (mid diabetes, controlled hypertension, obesity ASA 3: a patient with a severe systemic disease that limits activity (angina , COPD, prior Myocardial infarction) ASA 4: a patient with an incapacitating disease that is a constant threat to life (CHF, renal failure) ASA 5: a moribund patient not expected to survive 24 hrs. (ruptured aneurysm) ASA 6: a declared brain patient whose organs are being harvested. For emergent operations, add the letter E after the classification Grade 1 Sedation Plan: Plan communicated to team members Note The patient is an appropriate candidate to undergo the planned procedure, sedation, and anesthesia. The patient immediately re-assessed prior to indication. DWAYNE SPARKS MD Jul 17, 2017 1:23 pm
--- NOTE | 2017-07-17 13:38 | Endo Procedure Record ---
Endo Procedure Report Date of Procedure Last Colonoscopy: Yes (2016) Jul 17, 2017 Surgeon (s) DWAYNE SPARKS MD Post Procedure/Op Diagnosis Very few diverticula Procedure Performed Colonoscopy to cecum Description of Procedure Anesthesia Type: Conscious Sedation Specimen(s) collected/removed none Description of the Procedure Indication for the procedure: This lady came in for surveillance colonoscopy, having undergone low anterior resection to manage a distal rectal carcinoma. Informed consent was obtained after reviewing the procedures in detail. Description of the procedure: She was placed in left lateral decubitus position and her vital signs were monitored. Conscious sedation was achieved using Versed and fentanyl. Digital rectal examination was unremarkable. The colonoscope was then introduced in the rectum and advanced past the anastomosis , all the way to the cecum. The scope was then withdrawn slowly and the mucosa examined in the systematic fashion Findings: Patent anastomosis with no local recurrence. Diffuse diverticulosis. No polyps were found. She tolerated the procedure well and was taken back to the nursing area in a stable condition. Impression: Previous resection for distal rectal carcinoma. No recurrence. No polyps. Recommend annual surveillance colonoscopy. Copies To: KIANA LEVIN DO Copies To: BETSY THOMPSON MD, XAVIER M MD Jul 17, 2017 1:38 pm
--- NOTE | 2017-07-17 13:42 | Discharge Inst-Simple/Standard ---
Discharge Inst-Standard Discharge Medications New, Converted or Re-Newed RX: Other Patient Instructions/Follow Up Plan of Care/Instructions/FU: Repeat colonoscopy in one year Activity as Tolerated: Yes Discharge Diet: No Restrictions DWAYNE SPARKS MD Jul 17, 2017 1:42 pm
[2017-07-17 14:00] VITALS: BP 107/54
[2017-07-17 14:30] VITALS: BP 111/67
[2017-07-17 14:47] VITALS: BP 111/67
[2017-07-17 15:25] LABS: FREE T4 (FREE THYROXINE) 1.15 NG/DL (0.70-1.48)
== END 2017-07-17 14:35 | disposition home or self-care (01) ==
LOC: ENDO 11:16
PROVIDERS: ATTEND Surgery
DX: K57.30 Diverticulosis of large intestine without perforation or abscess without bleeding (principal); Z85.048 Personal history of other malignant neoplasm of rectum, rectosigmoid junction, and anus; I10 Essential (primary) hypertension; Z87.891 Personal history of nicotine dependence; Z79.82 Long term (current) use of aspirin; Z79.899 Other long term (current) drug therapy; Z92.21 Personal history of antineoplastic chemotherapy; Z92.3 Personal history of irradiation
CPT/HCPCS: 36415; 84439; 84443; 84481

== ENCOUNTER 2017-07-25 05:38 | Outpatient (CLI) | payer MEDICARE, OTHER ==
[~2017-07-25] VITALS: Ht 177.8 cm; Wt 88.5 kg
[2017-07-26] MEDS ORDERED: ACHD5005 PO (09:32)
== END 2017-07-25 11:18 ==
LOC: PREOP 05:38
PROVIDERS: ATTEND Surgery
DX: Z01.818 Encounter for other preprocedural examination (principal); K80.20 Calculus of gallbladder without cholecystitis without obstruction

== ENCOUNTER 2017-07-26 05:53 | Day surgery (SDC) | payer MEDICARE, OTHER ==
[~2017-07-26] VITALS: Ht 177.8 cm; Wt 88.5 kg
[2017-07-26 06:15] VITALS: BP 170/83
[2017-07-26] MEDS: LACTATED RINGERS 1,000 ML IV PRN ×2 (06:40→08:53)
[2017-07-26] MEDS ORDERED: DEXAMETHASONE 10 MG/ML (DECADRON) 1 ML VIAL ONE (06:41)
[2017-07-26] MEDS ORDERED: LIDOCAINE PF 2% 5 ML (XYLOCAINE) VIAL ONE (06:41)
[2017-07-26] MEDS ORDERED: SEVOFLURANE (ULTANE) 15 ML INHAL SOLN ONE ×6 (06:41→08:57)
[2017-07-26] MEDS ORDERED: proPOfol 200 MG/20 ML (DIPRIVAN) VIAL IV ONE (06:41)
[2017-07-26] MEDS ORDERED: ROCURONIUM 10 MG/ML 5 ML SYRINGE IV ONE (06:41)
[2017-07-26] MEDS ORDERED: ONDANSETRON 4 MG/2 ML (SDV) Z0FRAN ONE (06:41)
[2017-07-26] MEDS ORDERED: MIDAZOLAM 2 MG/2 ML (VERSED) VIAL ONE (06:43)
[2017-07-26] MEDS ORDERED: fentaNYL INJECTION 100 MCG/2 ML AMP ONE (06:44)
[2017-07-26] MEDS ORDERED: ceFAZolin 2 GM IV Premixed 50 ML IV ONE (06:45)
[2017-07-26] MEDS ORDERED: CATHETER FLUSH 10 ML SYR IV PRN (06:45)
[2017-07-26] MEDS ORDERED: metroNIDAZOLE 500MG/100ML IVPB 100 ML IV ONE (06:45)
[2017-07-26] MEDS ORDERED: GLYCOPYRROLATE 0.2 MG/ML (ROBINUL) 2 ML VIAL ONE ×2 (06:59→09:01)
[2017-07-26] MEDS ORDERED: NEOSTIGMINE 1 MG/ML 5 ML SYRINGE ONE (06:59)
[2017-07-26] MEDS ORDERED: BUP/EPI 0.5% 1:200,000 (SENSORCAINE) 30 ML VIAL ONE (07:42)
--- NOTE | 2017-07-26 07:51 | Progress Note-Pre Operative ---
Pre-Operative Progress Note H&P Reviewed The H&P was reviewed, patient examined and no changes noted. Date Seen by Provider: Jul 20, 2017 Time Seen by Provider: 10:00 Date H&P Reviewed: Jul 26, 2017 Time H&P Reviewed: 07:51 Pre-Operative Diagnosis: Gallstones DWAYNE SPARKS MD Jul 26, 2017 7:51 am
[2017-07-26] MEDS ORDERED: BUP/EPI 0.5% 1:200,000 (SENSORCAINE) 30 ML VIAL INJ ONE (08:45)
--- NOTE | 2017-07-26 09:31 | Operative Report ---
Operative Report Date of Procedure/Surgery Jul 26, 2017 Surgeon (s) DWAYNE SPARKS MD Etl Database Developer (s): N/A Post-Operative Diagnosis Same Procedure Performed Robotic-assisted cholecystectomy Description of Procedure Anesthesia Type: General Estimated blood loss (mL): Minimal Specimen(s) collected/removed Gallbladder Description of the Procedure Indication for the procedure: This lady presented with long-standing gallstones , with the recent onset of symptoms. She was offered cholecystectomy using minimally invasive technique with robotic assistance. Informed consent was obtained after reviewing the operative details and complications of wound infection and bile leak. Description of procedure: She was placed supine on the operating table and general anesthesia induced. 2 g of Ancef and 500 mg of Flagyl were administered intravenously as prophylaxis against wound infection. Sequential compression devices were placed around her legs, to minimize the risk of venous thrombosis. Abdomen was prepared and draped in the usual sterile manner. Pneumoperitoneum was established using a Veress needle introduced over the left subcostal margin. Intra-abdominal pressure was maintained at 15 mmHg, using carbon dioxide insufflation. A 5 mm trocar was placed and anatomy visualized using a conventional laparoscope. Under direct view, I placed a 12 mm trocar over the supraumbilical region, followed by two 8 mm trocars along each side of the abdomen. She was then turned into reverse Trendelenburg position with the right side tilted up. The robotic system was then docked in place after switching to the high-definition, 3-dimensional laparoscope, associated with da Omari system. The gallbladder was rather elongated and packed with stones. The fundus was retracted cephalad and the infundibulum grasped with Cadiere forceps. Peritoneum overlying Calot's triangle was incised using the hook cautery, delineating the cystic duct and the artery. Both were controlled between locking clips. Cholecystectomy was then completed using the hook cautery. Subhepatic space was irrigated with saline and the gallbladder placed in an Endo Catch bag, being removed via the supraumbilical incision. The fascia over this incision was closed using #1 Vicryl, using the Kush Najera device. Skin incisions were closed using 4-0 Vicryl, in a subcuticular fashion. 0.5 percent Marcaine with epinephrine was infiltrated along the incisions, both pre- preemptively and at the conclusion of the operation. She tolerated the procedure well, was extubated in the operating room and taken to the recovery room in a stable condition Findings of the Procedure See op report Allergies and Home Medications Allergies Coded Allergies: No Known Drug Allergies (Unverified , 07/25/17) Home Medications Aspirin 81 Mg Tablet.dr, 81 MG PO DAILY, (Reported) Benazepril HCl 20 Mg Tablet, 20 MG PO DAILY, (Reported) Calcium Carbonate/Vitamin D3 1 Each Tablet, 1 EACH PO DAILY, (Reported) L.acidoph & Paracasei,B.lactis 1 Each Capsule, 1 EACH PO DAILY, (Reported) Loperamide HCl 2 Mg Tablet, 1 MG PO TIDPC, (Reported) take 1/2 of 2mg tab Multivitamin 1 Each Capsule, 1 EACH PO DAILY, (Reported) [place]-3 Fatty Acids/Fish Oil 1 Each Capsule, 1 EACH PO DAILY, (Reported) Patient Home Medication List Home Medication List Reviewed: Yes DWAYNE SPARKS MD Jul 26, 2017 9:31 am
[2017-07-26] MEDS ORDERED: ACHD5005 PO (09:32)
--- NOTE | 2017-07-26 09:33 | Discharge Inst-Simple/Standard ---
Discharge Inst-Standard Discharge Medications New, Converted or Re-Newed RX: RX on Chart Patient Instructions/Follow Up Plan of Care/Instructions/FU: Band-Aids off in 48 hours. Incentive spirometry. Follow-up in 3 weeks. Activity as Tolerated: Yes Discharge Diet: No Restrictions DWAYNE SPARKS MD Jul 26, 2017 9:33 am
[2017-07-26] MEDS ORDERED: ONDANSETRON 4 MG/2 ML (SDV) Z0FRAN IVP PRN (10:00)
[2017-07-26] MEDS ORDERED: fentaNYL INJECTION 100 MCG/2 ML AMP IVP PRN (10:00)
[2017-07-26] MEDS: morphine INJ 10 MG/ML 1ML (SYR OR VIAL) IVP PRN ×2 (10:10→10:15)
[2017-07-26 10:45] VITALS: BP 140/72
[2017-07-26 10:46] VITALS: BP 140/72
[2017-07-26 11:15] VITALS: BP 145/84
[2017-07-26 11:45] VITALS: BP 151/85
--- NOTE | 2017-07-26 14:01 | Anesthesia-General Post-Op ---
General Patient Condition Mental Status/LOC: Same as Preop Cardiovascular: Satisfactory Nausea/Vomiting: Absent Respiratory: Satisfactory Pain: Controlled Complications: Absent Post Op Complications Complications None Follow Up Care/Instructions Patient Instructions None needed. Anesthesia/Patient Condition Patient Condition Patient is doing well, no complaints, stable vital signs, no apparent adverse anesthesia problems. No complications reported per nursing. EVAN ESPINOZA CRNA Jul 26, 2017 14:01
== END 2017-07-26 11:50 | disposition home or self-care (01) ==
LOC: SDC 05:53
PROVIDERS: ATTEND Surgery
DX: K80.20 Calculus of gallbladder without cholecystitis without obstruction (principal); Z11.2 Encounter for screening for other bacterial diseases; Z79.899 Other long term (current) drug therapy; Z79.82 Long term (current) use of aspirin; I10 Essential (primary) hypertension; E78.5 Hyperlipidemia, unspecified; Z87.891 Personal history of nicotine dependence
CPT/HCPCS: 87081

== ENCOUNTER 2017-08-31 11:59 | Outpatient (RCR) | payer MEDICARE, OTHER ==
[2017-07-07 09:18] LABS: BASOPHILS % (AUTO) 1 % (0-10); EOSINOPHILS # (AUTO) 0.1 10^3/uL (0.0-0.3); EOSINOPHILS % (AUTO) 2 % (0-10); HEMATOCRIT 39 % (35-52); HEMOGLOBIN 13.5 G/DL (11.5-16.0); LYMPHOCYTES % (AUTO) 18 % (12-44); MEAN CORPUSCULAR HEMOGLOBIN 32 PG (25-34); MEAN CORPUSCULAR HGB CONC 35 G/DL (32-36); MEAN CORPUSCULAR VOLUME 92 FL (80-99); MEAN PLATELET VOLUME 9.5 FL (7.4-10.4); MONOCYTES # (AUTO) 0.4 X 10^3 (0.0-1.0); MONOCYTES % (AUTO) 8 % (0-12); NEUTROPHILS # (AUTO) 3.7 X 10^3 (1.8-7.8); NEUTROPHILS % (AUTO) 71 % (42-75); PLATELET COUNT 207 10^3/uL (130-400); RED BLOOD COUNT 4.21 10^6/uL (4.35-5.85); RED CELL DISTRIBUTION WIDTH 12.1 % (10.0-14.5); WHITE BLOOD COUNT 5.2 10^3/uL (4.3-11.0)
[2017-07-07 09:41] LABS: ALANINE AMINOTRANSFERASE 21 U/L (0-55); ALBUMIN 4.3 GM/DL (3.2-4.5); ALKALINE PHOSPHATASE 49 U/L (40-136); BILIRUBIN,TOTAL 0.9 MG/DL (0.1-1.0); BUN/CREATININE RATIO 21; CALCIUM 9.6 MG/DL (8.5-10.1); CARBON DIOXIDE 24 MMOL/L (21-32); CHLORIDE 109 MMOL/L (98-107); CREATININE SERUM 0.73 MG/DL (0.60-1.30); GFR ESTIMATED > 60; GLUCOSE 96 MG/DL (70-105); POTASSIUM 3.9 MMOL/L (3.6-5.0); SODIUM 140 MMOL/L (135-145)
[~2017-08-31 11:59] MED LIST changes: +ACHD5005 PO
== END 2017-10-05 | disposition home or self-care (01) ==
LOC: ONC 11:59
PROVIDERS: ATTEND Internal Medicine Hematology & Oncology
DX: C20 Malignant neoplasm of rectum (principal); E04.1 Nontoxic single thyroid nodule; I10 Essential (primary) hypertension; E78.5 Hyperlipidemia, unspecified; Z79.899 Other long term (current) drug therapy; Z92.3 Personal history of irradiation; Z92.21 Personal history of antineoplastic chemotherapy; Z45.2 Encounter for adjustment and management of vascular access device
CPT/HCPCS: 80053; 82378; 85025; 96523; 99213

== ENCOUNTER 2017-10-11 12:38 | Outpatient (RCR) | payer MEDICARE, OTHER ==
[~2017-10-11 12:38] MED LIST changes: -BENA20TA2 PO; +BENA20TA7 PO; -BENA5TAB2 PO; +BENA5TAB3 PO
== END 2017-11-23 09:57 | disposition home or self-care (01) ==
LOC: ONC 12:38
PROVIDERS: ATTEND Internal Medicine Hematology & Oncology
DX: C20 Malignant neoplasm of rectum (principal); E04.1 Nontoxic single thyroid nodule; I10 Essential (primary) hypertension; E78.5 Hyperlipidemia, unspecified; Z79.899 Other long term (current) drug therapy; Z92.3 Personal history of irradiation; Z92.21 Personal history of antineoplastic chemotherapy; Z45.2 Encounter for adjustment and management of vascular access device
CPT/HCPCS: 96523

== ENCOUNTER → 2017-11-13 | Outpatient (CLI) | payer MEDICARE, OTHER ==
--- NOTE | 2017-11-13 13:11 | Diagnostic Imaging Report ---
PROCEDURE: US Thyroid. TECHNIQUE: Multiple real-time grayscale images were obtained of the thyroid in various projections. INDICATION: Left thyroid nodule. COMPARISON: Correlation is made with thyroid ultrasound from 11/15/2016. FINDINGS: The right lobe of the thyroid measures 4.2 x 1.7 x 1.3 cm and the left lobe measures 6.5 x 3.4 x 4.5 cm. There is a dominant solid mass left lobe of the thyroid measuring approximately 6.0 x 3.5 x 4.1 cm. This compares with 5.3 x 2.8 x 4.0 cm. There is a subcentimeter nodule lower pole right lobe, stable. No new mass is seen. IMPRESSION: Dominant solid left lobe thyroid mass, measuring slightly larger on today's study when compared with one year earlier. This could be owing to slight differences in measurement technique. Continued followup is recommended. Dictated by: Dictated on workstation # [id number]
[2017-11-13 13:24] LABS: TSH (THYROID ANALYZER) 0.73 UIU/ML (0.35-4.94)
== END ==
LOC: RAD 11:57
PROVIDERS: ATTEND Internal Medicine Endocrinology, Diabetes & Metabolism
DX: E04.1 Nontoxic single thyroid nodule (principal)
CPT/HCPCS: 36415; 76536; 84443

== ENCOUNTER → 2018-01-15 | Outpatient (CLI) | payer MEDICARE, OTHER ==
[~2018-01-15] MED LIST changes: -AMLO5TAB2 PO; +AMLO5TAB7 PO
--- NOTE | 2018-01-15 10:38 | Diagnostic Imaging Report ---
Indication: Routine screening. Comparison is made with prior mammogram from 01/12/2017 and 01/12/2016. 2-D and 3-D bilateral screening mammography was performed with CAD. Both breasts are heterogeneously dense, limiting the sensitivity of mammography. The parenchymal pattern is stable. No mass or malignant-appearing microcalcifications are seen. The axillae are unremarkable. Impression: BI-RADS category 1. No mammographic features suspicious for malignancy are identified. ACR BI-RADS Category 1: Negative. Result letter will be mailed to the patient. Note: At least 10% of breast cancer is not imaged by mammography. Dictated by: Dictated on workstation # [id number]
== END ==
LOC: RAD 08:40
PROVIDERS: ATTEND Family Medicine
DX: Z12.31 Encounter for screening mammogram for malignant neoplasm of breast (principal)
CPT/HCPCS: 77067

== ENCOUNTER → 2018-01-18 | Outpatient (CLI) | payer MEDICARE, OTHER ==
[2018-01-18 10:33] LABS: BASOPHILS % (AUTO) 1 % (0-10); EOSINOPHILS # (AUTO) 0.1 10^3/uL (0.0-0.3); EOSINOPHILS % (AUTO) 3 % (0-10); HEMOGLOBIN 13.1 G/DL (11.5-16.0); LYMPHOCYTES # (AUTO) 0.9 X 10^3 (1.0-4.0); LYMPHOCYTES % (AUTO) 24 % (12-44); MEAN CORPUSCULAR HGB CONC 35 G/DL (32-36); MEAN CORPUSCULAR VOLUME 93 FL (80-99); MEAN PLATELET VOLUME 10.4 FL (7.4-10.4)
[2018-01-18 10:48] LABS: HEMATOCRIT 38 % (35-52); MEAN CORPUSCULAR HEMOGLOBIN 32 PG (25-34); MONOCYTES % (AUTO) 8 % (0-12); NEUTROPHILS % (AUTO) 64 % (42-75); PLATELET COUNT 195 10^3/uL (130-400); RED BLOOD COUNT 4.05 10^6/uL (4.35-5.85); RED CELL DISTRIBUTION WIDTH 12.5 % (10.0-14.5); WHITE BLOOD COUNT 3.7 10^3/uL (4.3-11.0)
[2018-01-18 10:49] LABS: MONOCYTES # (AUTO) 0.3 X 10^3 (0.0-1.0); NEUTROPHILS # (AUTO) 2.4 X 10^3 (1.8-7.8)
[2018-01-18 10:52] LABS: ALANINE AMINOTRANSFERASE 50 U/L (0-55); ALBUMIN 4.2 GM/DL (3.2-4.5); BILIRUBIN,TOTAL 0.9 MG/DL (0.1-1.0); BUN/CREATININE RATIO 19; CHOLESTEROL 228 MG/DL (< 200); CREATININE SERUM 0.74 MG/DL (0.60-1.30); GFR ESTIMATED > 60; HDL CHOLESTEROL 53 MG/DL (40-60); TRIGLYCERIDES 124 MG/DL (<150); VLDL CHOLESTEROL 25 MG/DL (5-40)
[2018-01-18 10:59] LABS: ALKALINE PHOSPHATASE 54 U/L (40-136); CALCIUM 9.7 MG/DL (8.5-10.1); CARBON DIOXIDE 23 MMOL/L (21-32); CHLORIDE 110 MMOL/L (98-107); GLUCOSE 92 MG/DL (70-105); SODIUM 141 MMOL/L (135-145)
[2018-01-18 11:00] LABS: TOTAL PROTEIN 6.7 GM/DL (6.4-8.2)
== END ==
LOC: LAB 09:25
PROVIDERS: ATTEND Family Medicine
DX: E11.9 Type 2 diabetes mellitus without complications (principal); I10 Essential (primary) hypertension; E78.2 Mixed hyperlipidemia
CPT/HCPCS: 36415; 80053; 80061; 84443; 85025

== ENCOUNTER 2018-01-25 09:43 | Outpatient (RCR) | payer MEDICARE, OTHER ==
[2018-01-18 10:03] LABS: BASOPHILS % (AUTO) 1 % (0-10); EOSINOPHILS # (AUTO) 0.1 10^3/uL (0.0-0.3); EOSINOPHILS % (AUTO) 3 % (0-10); HEMATOCRIT 38 % (35-52); HEMOGLOBIN 13.1 G/DL (11.5-16.0); LYMPHOCYTES # (AUTO) 0.9 X 10^3 (1.0-4.0); LYMPHOCYTES % (AUTO) 24 % (12-44); MEAN CORPUSCULAR HEMOGLOBIN 32 PG (25-34); MEAN CORPUSCULAR HGB CONC 35 G/DL (32-36); MEAN CORPUSCULAR VOLUME 93 FL (80-99); MEAN PLATELET VOLUME 10.4 FL (7.4-10.4); MONOCYTES # (AUTO) 0.3 X 10^3 (0.0-1.0); MONOCYTES % (AUTO) 8 % (0-12); NEUTROPHILS # (AUTO) 2.4 X 10^3 (1.8-7.8); NEUTROPHILS % (AUTO) 64 % (42-75); PLATELET COUNT 195 10^3/uL (130-400); RED BLOOD COUNT 4.05 10^6/uL (4.35-5.85); RED CELL DISTRIBUTION WIDTH 12.5 % (10.0-14.5); WHITE BLOOD COUNT 3.7 10^3/uL (4.3-11.0)
[2018-01-18 10:22] LABS: ALANINE AMINOTRANSFERASE 50 U/L (0-55); ALBUMIN 4.2 GM/DL (3.2-4.5); ALKALINE PHOSPHATASE 54 U/L (40-136); BILIRUBIN,TOTAL 0.9 MG/DL (0.1-1.0); BUN/CREATININE RATIO 19; CALCIUM 9.7 MG/DL (8.5-10.1); CARBON DIOXIDE 23 MMOL/L (21-32); CHLORIDE 110 MMOL/L (98-107); CREATININE SERUM 0.74 MG/DL (0.60-1.30); GFR ESTIMATED > 60; GLUCOSE 92 MG/DL (70-105); SODIUM 141 MMOL/L (135-145); TOTAL PROTEIN 6.7 GM/DL (6.4-8.2)
[~2018-01-25 09:43] MED LIST changes: +ALTEPLASE 2 MG (CATHFLO) CANCER CENTER IV ONE
== END 2018-02-15 10:40 | disposition home or self-care (01) ==
LOC: ONC 09:43
PROVIDERS: ATTEND Internal Medicine Hematology & Oncology
DX: C20 Malignant neoplasm of rectum (principal); E04.1 Nontoxic single thyroid nodule; I10 Essential (primary) hypertension; E78.5 Hyperlipidemia, unspecified; Z79.899 Other long term (current) drug therapy; Z92.3 Personal history of irradiation; Z92.21 Personal history of antineoplastic chemotherapy; Z45.2 Encounter for adjustment and management of vascular access device
CPT/HCPCS: 36591; 36593; 80053; 82378; 85025; 96523; 99213

== ENCOUNTER → 2018-04-19 | Outpatient (CLI) | payer MEDICARE, OTHER ==
[~2018-04-19] MED LIST changes: -ALTEPLASE 2 MG (CATHFLO) CANCER CENTER IV ONE
[2018-04-19 11:19] LABS: BASOPHILS % (AUTO) 1 % (0-10); EOSINOPHILS # (AUTO) 0.1 10^3/uL (0.0-0.3); EOSINOPHILS % (AUTO) 3 % (0-10); HEMATOCRIT 38 % (35-52); HEMOGLOBIN 12.9 G/DL (11.5-16.0); LYMPHOCYTES % (AUTO) 23 % (12-44); MEAN CORPUSCULAR HEMOGLOBIN 32 PG (25-34); MEAN CORPUSCULAR HGB CONC 34 G/DL (32-36); MEAN CORPUSCULAR VOLUME 93 FL (80-99); MONOCYTES # (AUTO) 0.5 X 10^3 (0.0-1.0); MONOCYTES % (AUTO) 12 % (0-12); NEUTROPHILS # (AUTO) 2.7 X 10^3 (1.8-7.8); NEUTROPHILS % (AUTO) 62 % (42-75); PLATELET COUNT 227 10^3/uL (130-400); RED BLOOD COUNT 4.04 10^6/uL (4.35-5.85); RED CELL DISTRIBUTION WIDTH 12.3 % (10.0-14.5); WHITE BLOOD COUNT 4.4 10^3/uL (4.3-11.0)
== END ==
LOC: LAB 11:09
PROVIDERS: ATTEND Family Medicine
DX: D70.9 Neutropenia, unspecified (principal)
CPT/HCPCS: 36415; 85025

== ENCOUNTER 2018-05-10 09:51 | Outpatient (RCR) | payer MEDICARE, OTHER | END 2018-05-16 | disposition home or self-care (01) | LOC: ONC 09:51 | PROVIDERS: ATTEND Internal Medicine Hematology & Oncology | DX: C20 Malignant neoplasm of rectum (principal); E04.1 Nontoxic single thyroid nodule; I10 Essential (primary) hypertension; E78.5 Hyperlipidemia, unspecified; Z79.899 Other long term (current) drug therapy; Z92.3 Personal history of irradiation; Z92.21 Personal history of antineoplastic chemotherapy; Z45.2 Encounter for adjustment and management of vascular access device | CPT/HCPCS: 96523 ==

== ENCOUNTER → 2018-05-28 | Outpatient (CLI) | payer MEDICARE, OTHER ==
[~2018-05-28] MED LIST changes: -AMLO5TAB7 PO; +AMLO5TAB9 PO
--- NOTE | 2018-05-28 09:52 | Diagnostic Imaging Report ---
PROCEDURE: US Thyroid. TECHNIQUE: Multiple real-time grayscale images were obtained of the thyroid in various projections. INDICATION: Thyroid nodule. FINDINGS: The previous thyroid ultrasound exam of 11/03/2017 noted dominant nodule in the left lobe of the thyroid. This nodule measured 6.0 x 3.5 x 4.1 c.m. This nodule did seem somewhat greater in size than noted on the previous exam of 11/15/2016. On this study, the nodules are again identified and now measures 6.0 x 3.4 x 3.9 cm. The nodule does seem quite similar to the prior exam. The previous study also identified a subcentimeter nodule in the right lobe of the thyroid. That finding is also again visualized and now measures 0.9 x 0.8 x 0.7 cm. Previously this is estimated to be 0.8 x 0.9 x 0.8 c.m. The overall appearance of the thyroid gland is otherwise no different. IMPRESSION: The large nodule in the left lobe of the thyroid and the subcentimeter nodule in the right lobe of the thyroid seen previously appear stable. No new abnormality has developed. Dictated by: Dictated on workstation # [id number]
== END ==
LOC: RAD 07:44
PROVIDERS: ATTEND Internal Medicine Endocrinology, Diabetes & Metabolism
DX: E04.2 Nontoxic multinodular goiter (principal)
CPT/HCPCS: 76536

== ENCOUNTER 2018-07-16 05:35 | Outpatient (CLI) | payer MEDICARE, OTHER ==
[~2018-07-16] VITALS: Ht 177.8 cm; Wt 88.5 kg
[~2018-07-16 05:35] MED LIST changes: -HYDR-3454 PO; +HYDR-3455 PO
[2018-07-16] MEDS ORDERED: SIMV10TA3 PO (10:15)
== END 2018-07-16 10:27 | disposition home or self-care (01) ==
LOC: PREOP 05:35
PROVIDERS: ATTEND Surgery
DX: Z01.818 Encounter for other preprocedural examination (principal)

== ENCOUNTER → 2018-07-19 | Outpatient (CLI) | payer MEDICARE, OTHER ==
[~2018-07-19] MED LIST changes: +SIMV10TA3 PO
[2018-07-19 08:36] LABS: ALANINE AMINOTRANSFERASE 21 U/L (0-55); ALBUMIN 4.5 GM/DL (3.2-4.5); ALKALINE PHOSPHATASE 50 U/L (40-136); BILIRUBIN,TOTAL 0.7 MG/DL (0.1-1.0); BUN/CREATININE RATIO 23; CALCIUM 9.8 MG/DL (8.5-10.1); CARBON DIOXIDE 25 MMOL/L (21-32); CHLORIDE 108 MMOL/L (98-107); CHOLESTEROL 163 MG/DL (< 200); CREATININE SERUM 0.86 MG/DL (0.60-1.30); GFR ESTIMATED > 60; GLUCOSE 91 MG/DL (70-105); HDL CHOLESTEROL 56 MG/DL (40-60); SODIUM 141 MMOL/L (135-145); TOTAL PROTEIN 7.2 GM/DL (6.4-8.2); TRIGLYCERIDES 96 MG/DL (<150); VLDL CHOLESTEROL 19 MG/DL (5-40)
== END ==
LOC: LAB 08:06
PROVIDERS: ATTEND Family Medicine
DX: E78.5 Hyperlipidemia, unspecified (principal)
CPT/HCPCS: 36415; 80053; 80061

== ENCOUNTER 2018-07-23 08:02 | Day surgery (SDC) | payer MEDICARE, OTHER ==
[~2018-07-23] VITALS: Ht 177.8 cm; Wt 88.5 kg
--- NOTE | 2018-07-23 08:14 | History & Physicial ---
History of Present Illness History of Present Illness Reason for visit/HPI to undergo surveillance colonoscopy. Rectal adenocarcinoma resected before with primary anastomosis. 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 Date of Admission 07/23/18 Date Seen by a Provider: Jul 23, 2018 Time Seen by a Provider: 08:13 I consulted on this patient on 07/23/18 08:12 Attending Physician Dwayne Muller MD Admitting Physician Angie Sloan DO Consult Allergies and Home Medications Allergies Coded Allergies: No Known Drug Allergies (Unverified , 07/16/18) Home Medications Aspirin 81 Mg Tablet.dr, 81 MG PO DAILY, (Reported) Benazepril HCl 20 Mg Tablet, 20 MG PO DAILY, (Reported) Calcium Carbonate/Vitamin D3 1 Each Tablet, 1 EACH PO Q48H, (Reported) L.acidoph & Paracasei,B.lactis 1 Each Capsule, 1 EACH PO DAILY, (Reported) Loperamide HCl 2 Mg Tablet, 1 MG PO TIDPC, (Reported) take 1/2 of 2mg tab Multivitamin 1 Each Capsule, 1 EACH PO DAILY, (Reported) Maskell-3 Fatty Acids/Fish Oil 1 Each Capsule, 1 EACH PO DAILY, (Reported) Simvastatin 10 Mg Tablet, 10 MG PO HS, (Reported) Patient Home Medication List Home Medication List Reviewed: Yes Past Tkltgsc-Mfwafd-Mompae Hx Patient Social History Marrital Status: Employed/Student: retired Former Smoker, Quit: Dec 14, 1975 Type Used: Cigarettes 2nd Hand Smoke Exposure: Yes Recent Foreign Travel: No Contact w/other who traveled: No Recent Hopitalizations: No Immunizations Up To Date Tetanus Booster (TDap): Unknown Pediatric: No Date of Pneumonia Vaccine: Feb 15, 2016 Date of Influenza Vaccine: Feb 05, 2018 Seasonal Allergies Seasonal Allergies: No Surgeries Yes (COLON RESECTION, ILEOSTOMY PLACED THEN REVERSED, PORT PLACEMENT) Bowel Surgery, Gallbladder, Hysterectomy Respiratory No Cardiovascular Yes Hypertension Neurological No Reproductive System Hx Reproductive Disorders: No Sexually Transmitted Disease: No HIV/AIDS: No STEWARD/STEWARDESS BATH History: Hysterectomy Genitourinary No Gastrointestinal Yes (HX OF COLON RESECTION/ANAL CANCER) Chronic Constipation, Chronic Diarrhea Musculoskeletal No Endocrine History of Endocrine Disorders: Yes (LEFT LOBE ENLARGED-FOLLOWS WITH SONOGRAMS) Endocrine Disorders: Hypothyroidsim HEENT History of HEENT Disorders: Yes (GLASSES) Loss of Vision: Bilateral Hearing Impairment: Denies Cancer Yes (ANAL) Colon Did You Recieve Any Treatments: Yes Type of Treatment: Chemotherapy, Radiation, Surgical Intervention Psychosocial History of Psychiatric Problem: No Integumentary History of Skin or Integumenta: No Blood Transfusions History of Blood Disorders: No Adverse Reaction to a Blood Tr: No (N/A) Review of Systems Constitutional: no symptoms reported EENTM: no symptoms reported Respiratory: no symptoms reported Cardiovascular: no symptoms reported Gastrointestinal: no symptoms reported Genitourinary: no symptoms reported Musculoskeletal: no symptoms reported Skin: no symptoms reported Psychiatric/Neurological: No Symptoms Reported Physical Exam Vital Signs Capillary Refill : Height, Weight, BMI Height: 5'10.00" Weight: 195lbs. 0.0oz. 88.117965oh; 28.0 BMI Method: General Appearance: No Apparent Distress Neck: Normal Inspection Respiratory: Lungs Clear Cardiovascular: Regular Rate, Rhythm Gastrointestinal: Non Tender, Soft Rectal: Deferred Extremity: Normal Inspection Neurologic/Psychiatric: Alert, Oriented x3 Skin: Warm/Dry Assessment/Plan Assessment and Plan lady with history of rectal carcinoma. For surveillance colonoscopy Admission Diagnosis Admission Status: Other (Outpt Proc) DWAYNE MULLER MD Jul 23, 2018 08:14
[2018-07-23] MEDS ORDERED: NS IV 500 ML 500 ML IV PRN (08:17)
[2018-07-23] MEDS ORDERED: NS IV 500 ML 500 ML ONE (08:21)
--- NOTE | 2018-07-23 08:26 | Conscious Sedation/ASA ---
Conscious Sedation Pre-Proced Time 07:55 ASA Score 2 For ASA 3 and 4: Consider anesthesia and medical clearance. Also, for patients with a history of failed moderate sedation consider anesthesia. Airway Lungs Heart ASA score ASA 1: a normal healthy patient ASA 2: a patient with a mild systemic disease (mid diabetes, controlled hypertension, obesity ASA 3: a patient with a severe systemic disease that limits activity (angina , COPD, prior Myocardial infarction) ASA 4: a patient with an incapacitating disease that is a constant threat to life (CHF, renal failure) ASA 5: a moribund patient not expected to survive 24 hrs. (ruptured aneurysm) ASA 6: a declared brain- patient whose organs are being harvested. For emergent operations, add the letter E after the classification Mallampati Classification Grade 1 Sedation Plan Discussed options with patient/fam The patient is an appropriate candidate to undergo the planned procedure, sedation, and anesthesia. The patient immediately re-assessed prior to indication. DWAYNE SPARKS MD Jul 23, 2018 08:26
[2018-07-23] MEDS ORDERED: MIDAZOLAM 2 MG/2 ML (VERSED) VIAL IVP ONE (08:30)
[2018-07-23] MEDS ORDERED: fentaNYL INJECTION 100 MCG/2 ML AMP IVP ONE (08:30)
[2018-07-23] MEDS ORDERED: fentaNYL INJECTION 100 MCG/2 ML AMP ONE (08:51)
[2018-07-23] MEDS ORDERED: MIDAZOLAM 2 MG/2 ML (VERSED) VIAL ONE ×3 (08:51)
[2018-07-23 08:54] VITALS: BP 150/79
--- NOTE | 2018-07-23 09:17 | Endo Procedure Record ---
Endo Procedure Report Date of Procedure Last Colonoscopy: Yes (2017) Jul 23, 2018 Surgeon (s) DWAYNE SPARKS MD Post Procedure/Op Diagnosis very few diverticulae along the descending colon Procedure Performed colonoscopy to cecum Description of Procedure Anesthesia Type: Conscious Sedation Specimen(s) collected/removed none Description of the Procedure Indication for the procedure: This lady, with a history of squamous cell carcinoma of the anal canal managed by chemoradiation, followed by a low anterior resection to address rectal adenocarcinoma, returned for surveillance colonoscopy. Informed consent was obtained after reviewing the procedure in detail. Description of the procedure: She was placed in left lateral decubitus position and her vital signs were monitored. Conscious sedation was achieved using Versed and fentanyl. Examination of the perianal region revealed slight induration due to previous chemoradiation. There was no recurrent anal carcinoma. Digital examination was unremarkable. The colonoscope was then introduced into the rectum, advanced past the colorectal anastomosis, to the cecum. The quality of bowel preparation was reasonable. The scope was then withdrawn slowly and the mucosa examined in a systematic fashion. Finding: Very few diverticula along the descending colon. She tolerated the procedure well and was taken back to the nursing area in a stable condition. Impression: Previous history of squamous cell carcinoma of the anal canal followed by adenocarcinoma of the rectum. No polyps. No recurrence. Recommend surveillance in 2 years. Copy Copies To 1: KIANA LEVIN DO Copies To 2: BETSY THOMPSON MD, XAVIER M MD Jul 23, 2018 09:17
--- NOTE | 2018-07-23 09:18 | Discharge Inst-Simple/Standard ---
Discharge Inst-Standard Discharge Medications New, Converted or Re-Newed RX: Other Patient Instructions/Follow Up Plan of Care/Instructions/FU: repeat colonoscopy in 2 years Activity as Tolerated: Yes Discharge Diet: No Restrictions DWAYNE SPARKS MD Jul 23, 2018 09:18
[2018-07-23 09:35] VITALS: BP 125/60
[2018-07-23 10:05] VITALS: BP 130/74
[2018-07-23 10:20] VITALS: BP 130/74
== END 2018-07-23 10:20 | disposition home or self-care (01) ==
LOC: ENDO 08:02
PROVIDERS: ATTEND Surgery
DX: Z09 Encounter for follow-up examination after completed treatment for conditions other than malignant neoplasm (principal); K57.30 Diverticulosis of large intestine without perforation or abscess without bleeding; Z85.048 Personal history of other malignant neoplasm of rectum, rectosigmoid junction, and anus; I10 Essential (primary) hypertension; K59.09 Other constipation; K52.9 Noninfective gastroenteritis and colitis, unspecified; E03.9 Hypothyroidism, unspecified; Z92.21 Personal history of antineoplastic chemotherapy; Z92.3 Personal history of irradiation; Z90.49 Acquired absence of other specified parts of digestive tract; Z87.891 Personal history of nicotine dependence; Z79.82 Long term (current) use of aspirin; Z79.899 Other long term (current) drug therapy

== ENCOUNTER 2018-09-04 10:15 | Outpatient (RCR) | payer MEDICARE, OTHER ==
[2018-07-06 10:03] LABS: BASOPHILS % (AUTO) 1 % (0-10); EOSINOPHILS # (AUTO) 0.2 10^3/uL (0.0-0.3); EOSINOPHILS % (AUTO) 3 % (0-10); HEMATOCRIT 40 % (35-52); HEMOGLOBIN 13.5 G/DL (11.5-16.0); LYMPHOCYTES # (AUTO) 1.1 X 10^3 (1.0-4.0); LYMPHOCYTES % (AUTO) 21 % (12-44); MEAN CORPUSCULAR HEMOGLOBIN 31 PG (25-34); MEAN CORPUSCULAR HGB CONC 34 G/DL (32-36); MEAN CORPUSCULAR VOLUME 92 FL (80-99); MEAN PLATELET VOLUME 9.9 FL (7.4-10.4); MONOCYTES # (AUTO) 0.4 X 10^3 (0.0-1.0); MONOCYTES % (AUTO) 8 % (0-12); NEUTROPHILS # (AUTO) 3.5 X 10^3 (1.8-7.8); NEUTROPHILS % (AUTO) 68 % (42-75); PLATELET COUNT 171 10^3/uL (130-400); RED CELL DISTRIBUTION WIDTH 12.4 % (10.0-14.5); WHITE BLOOD COUNT 5.2 10^3/uL (4.3-11.0)
[2018-07-06 10:19] LABS: ALANINE AMINOTRANSFERASE 22 U/L (0-55); ALBUMIN 4.3 GM/DL (3.2-4.5); ALKALINE PHOSPHATASE 56 U/L (40-136); BILIRUBIN,TOTAL 0.8 MG/DL (0.1-1.0); BUN/CREATININE RATIO 21; CALCIUM 9.6 MG/DL (8.5-10.1); CARBON DIOXIDE 24 MMOL/L (21-32); CHLORIDE 107 MMOL/L (98-107); CREATININE SERUM 0.76 MG/DL (0.60-1.30); GFR ESTIMATED > 60; GLUCOSE 92 MG/DL (70-105); SODIUM 139 MMOL/L (135-145); TOTAL PROTEIN 6.8 GM/DL (6.4-8.2)
== END 2018-09-06 | disposition home or self-care (01) ==
LOC: ONC 10:15
PROVIDERS: ATTEND Internal Medicine Hematology & Oncology
DX: C20 Malignant neoplasm of rectum (principal); E04.1 Nontoxic single thyroid nodule; I10 Essential (primary) hypertension; E78.5 Hyperlipidemia, unspecified; Z79.899 Other long term (current) drug therapy; Z92.3 Personal history of irradiation; Z92.21 Personal history of antineoplastic chemotherapy; Z45.2 Encounter for adjustment and management of vascular access device
CPT/HCPCS: 36591; 80053; 82378; 85025; 96523; 99213

== ENCOUNTER 2019-01-03 09:46 | Outpatient (RCR) | payer MEDICARE, OTHER | END 2019-01-16 | disposition home or self-care (01) | LOC: ONC 09:46 | PROVIDERS: ATTEND Internal Medicine Hematology & Oncology | DX: C20 Malignant neoplasm of rectum (principal); E04.1 Nontoxic single thyroid nodule; I10 Essential (primary) hypertension; E78.5 Hyperlipidemia, unspecified; Z79.899 Other long term (current) drug therapy; Z92.3 Personal history of irradiation; Z92.21 Personal history of antineoplastic chemotherapy; Z45.2 Encounter for adjustment and management of vascular access device | CPT/HCPCS: 96523 ==

== ENCOUNTER → 2019-01-23 | Outpatient (CLI) | payer MEDICARE, OTHER ==
[2019-01-23 07:37] LABS: ALANINE AMINOTRANSFERASE 25 U/L (0-55); ALBUMIN 4.3 GM/DL (3.2-4.5); ALKALINE PHOSPHATASE 46 U/L (40-136); BILIRUBIN,TOTAL 0.8 MG/DL (0.1-1.0); BUN/CREATININE RATIO 16; CALCIUM 9.3 MG/DL (8.5-10.1); CARBON DIOXIDE 25 MMOL/L (21-32); CHLORIDE 108 MMOL/L (98-107); CHOLESTEROL 170 MG/DL (< 200); GFR ESTIMATED > 60; GLUCOSE 87 MG/DL (70-105); HDL CHOLESTEROL 58 MG/DL (40-60); POTASSIUM 3.8 MMOL/L (3.6-5.0); SODIUM 141 MMOL/L (135-145); TOTAL PROTEIN 6.8 GM/DL (6.4-8.2); TRIGLYCERIDES 87 MG/DL (<150); VLDL CHOLESTEROL 17 MG/DL (5-40)
--- NOTE | 2019-01-23 21:09 | Diagnostic Imaging Report ---
INDICATION: Routine screening. Comparison is made with prior mammogram from 01/15/2018 and 01/12/2017. 2-D and 3-D bilateral screening mammography was performed with CAD. The current study was also evaluated with a Computer Aided Detection (CAD) system. 3-D tomosynthesis was also performed and reviewed. Scattered fibroglandular densities are identified bilaterally. No mass or suspicious microcalcifications are identified. The axillae are unremarkable. IMPRESSION: No mammographic features suspicious for malignancy are identified. ACR BI-RADS Category 1: Negative. Result letter will be mailed to the patient. Note: At least 10% of breast cancer is not imaged by mammography. Dictated by: Dictated on workstation # [id number]
== END ==
LOC: RAD 06:49
PROVIDERS: ATTEND Family Medicine
DX: Z12.31 Encounter for screening mammogram for malignant neoplasm of breast (principal); E78.5 Hyperlipidemia, unspecified; R53.83 Other fatigue
CPT/HCPCS: 36415; 77067; 80053; 80061; 84443

== ENCOUNTER → 2019-02-12 | Outpatient (CLI) | payer MEDICARE, OTHER ==
--- NOTE | 2019-02-12 12:59 | Diagnostic Imaging Report ---
INDICATION: 73-year-old female, postmenopausal. Screening for osteoporosis. COMPARISON: None. FINDINGS: AP Spine L1-L4: [BMD (g/cm2): 1.048] [T-Score: -1.3] [Z-Score: -0.6] [BMD Previous: 1.167] [BMD % Change: -10.2] LT Hip Neck: [BMD (g/cm2): 0.960] [T-Score: -0.6] [Z-Score: 0.6] LT Hip Total: [BMD (g/cm2):0.960] [T-Score:-0.4] [Z-Score: 0.5] [BMD Previous: 1.179] [BMD % Change: -18.6] RT Hip Neck: [BMD (g/cm2):0.970] [T-Score:-0.5] [Z-Score:0.6] RT Hip Total: [BMD (g/cm2):1.007] [T-score:0.0] [Z-Score:0.8] [BMD Previous:1.158] [BMD % Change:-13.0] *Indicates significant change from prior examination based on 95% confidence level. World Health Organization criteria for BMD interpretation classify patients as Normal (T-score at or above -1.0), Osteopenic (T-score between -1.0 and -2.5) or Osteoporotic (T-score at or below -2.5). LIMITATIONS AND MODIFICATION: None. FRACTURE RISK (FRAX SCORE): The ten year probability of (%): Major Osteoporotic Fracture: [N/A] Hip Fracture: [N/A] IMPRESSION: 1. Osteopenia (Low bone mass). 2. Baseline examination. 3. See below National Osteoporosis Foundation guidelines on when to potentially initiate pharmacologic therapy. Based on the National Osteoporosis Foundation Guidelines, pharmacologic treatment should be initiated in any of the following, unless clinical conditions suggest otherwise: * Any patient with prior fragility fracture of the hip or vertebrae. A spine fracture indicates 5X risk for subsequent spine fracture and 2X risk for subsequent hip fracture. * Osteoporosis (T-score <-2.5). * Postmenopausal women and men age 50 and older with low bone mass/osteopenia (T-score between -1.0 and -2.5) by DXA and 10-year major osteoporotic fracture greater than 20% or a 10-year probability of hip fracture greater than 3%. These fracture risks are supplied above in the FRAX score, if applicable. * Clinician judgement and/or patient preferences may indicate treatment for people with 10-year fracture probabilities above or below these levels. Dictated by: Dictated on workstation # [id number]
== END ==
LOC: RAD 12:16
PROVIDERS: ATTEND Family Medicine
DX: Z13.820 Encounter for screening for osteoporosis (principal); M85.88 Other specified disorders of bone density and structure, other site; Z78.0 Asymptomatic menopausal state
CPT/HCPCS: 77080

== ENCOUNTER 2019-05-14 10:24 | Outpatient (RCR) | payer MEDICARE, OTHER ==
[2019-02-20 10:25] LABS: BASOPHILS % (AUTO) 0 % (0-10); EOSINOPHILS # (AUTO) 0.2 10^3/uL (0.0-0.3); EOSINOPHILS % (AUTO) 4 % (0-10); HEMATOCRIT 40 % (35-52); HEMOGLOBIN 13.5 G/DL (11.5-16.0); LYMPHOCYTES # (AUTO) 0.9 X 10^3 (1.0-4.0); LYMPHOCYTES % (AUTO) 20 % (12-44); MEAN CORPUSCULAR HEMOGLOBIN 31 PG (25-34); MEAN CORPUSCULAR HGB CONC 34 G/DL (32-36); MEAN CORPUSCULAR VOLUME 92 FL (80-99); MEAN PLATELET VOLUME 10.1 FL (7.4-10.4); MONOCYTES # (AUTO) 0.4 X 10^3 (0.0-1.0); MONOCYTES % (AUTO) 10 % (0-12); NEUTROPHILS % (AUTO) 66 % (42-75); PLATELET COUNT 199 10^3/uL (130-400); RED CELL DISTRIBUTION WIDTH 12.3 % (10.0-14.5); WHITE BLOOD COUNT 4.5 10^3/uL (4.3-11.0)
[2019-02-20 10:42] LABS: ALANINE AMINOTRANSFERASE 22 U/L (0-55); ALBUMIN 4.3 GM/DL (3.2-4.5); ALKALINE PHOSPHATASE 61 U/L (40-136); BILIRUBIN,TOTAL 0.8 MG/DL (0.1-1.0); BUN/CREATININE RATIO 19; CALCIUM 9.5 MG/DL (8.5-10.1); CARBON DIOXIDE 24 MMOL/L (21-32); CHLORIDE 108 MMOL/L (98-107); CREATININE SERUM 0.78 MG/DL (0.60-1.30); GFR ESTIMATED > 60; GLUCOSE 94 MG/DL (70-105); POTASSIUM 3.8 MMOL/L (3.6-5.0); SODIUM 141 MMOL/L (135-145); TOTAL PROTEIN 6.9 GM/DL (6.4-8.2)
[~2019-05-14 10:24] MED LIST changes: +SIMV10TA26 PO; -SIMV10TA3 PO; +SIMV20TA26 PO; -SIMV20TA3 PO
== END 2019-05-21 | disposition home or self-care (01) ==
LOC: ONC 10:24
PROVIDERS: ATTEND Internal Medicine Hematology & Oncology
DX: C20 Malignant neoplasm of rectum (principal); C21.1 Malignant neoplasm of anal canal; N83.202 Unspecified ovarian cyst, left side; Z45.2 Encounter for adjustment and management of vascular access device
CPT/HCPCS: 36591; 80053; 82378; 85025; 96523; 99213

== ENCOUNTER 2019-09-17 10:53 | Outpatient (RCR) | payer MEDICARE, OTHER | END 2019-09-23 | disposition home or self-care (01) | LOC: ONC 10:53 | PROVIDERS: ATTEND Internal Medicine Hematology & Oncology | DX: C20 Malignant neoplasm of rectum (principal); C21.1 Malignant neoplasm of anal canal; N83.202 Unspecified ovarian cyst, left side; Z45.2 Encounter for adjustment and management of vascular access device | CPT/HCPCS: 96523 ==

== ENCOUNTER → 2019-10-25 | Outpatient (CLI) | payer MEDICARE, OTHER | LOC: LAB 08:49 | PROVIDERS: ATTEND Family Medicine | DX: E78.2 Mixed hyperlipidemia (principal); I10 Essential (primary) hypertension ==

== ENCOUNTER → 2019-12-06 | Outpatient (CLI) | payer MEDICARE, OTHER ==
--- NOTE | 2019-12-06 12:58 | Diagnostic Imaging Report ---
PROCEDURE: US Thyroid. TECHNIQUE: Multiple real-time grayscale images were obtained of the thyroid in various projections. INDICATION: Left thyroid nodule. COMPARISON: Correlation is made with prior thyroid ultrasound from 12/03/2018. FINDINGS: Right lobe of the thyroid measures 4.0 x 1.7 x 1.4 cm and the left lobe measures 6.4 x 3.4 x 4.4 cm. Isthmus is 4 mm in thickness. Right lobe does contain a circumscribed hypoechoic nodule measuring 1.1 x 0.8 x 0.8 cm. This compares with 0.8 x 0.6 x 0.7 cm on prior. Size difference may be owing to slight differences in measurement technique. The dominant mass in the left lobe of the thyroid measures 5.2 x 4.2 x 3.5 cm. This compares with 5.2 x 3.0 x 3.8 cm on prior. No new mass is seen. IMPRESSION: Bilateral thyroid masses, largest on the left. The size differences may be owing to slight differences in measurement technique. Continued follow-up is recommended. Dictated by: Dictated on workstation # [id number]
== END ==
LOC: RAD 10:47
PROVIDERS: ATTEND Internal Medicine Endocrinology, Diabetes & Metabolism
DX: E04.2 Nontoxic multinodular goiter (principal)
CPT/HCPCS: 36415; 76536; 84443

== ENCOUNTER 2019-12-30 13:46 | Outpatient (RCR) | payer MEDICARE, OTHER ==
[2019-10-25 09:17] LABS: BASOPHILS % (AUTO) 1 % (0-10); EOSINOPHILS # (AUTO) 0.2 10^3/uL (0.0-0.3); EOSINOPHILS % (AUTO) 4 % (0-10); HEMATOCRIT 40 % (35-52); HEMOGLOBIN 13.7 G/DL (11.5-16.0); LYMPHOCYTES # (AUTO) 1.1 X 10^3 (1.0-4.0); LYMPHOCYTES % (AUTO) 27 % (12-44); MEAN CORPUSCULAR HEMOGLOBIN 31 PG (25-34); MEAN CORPUSCULAR HGB CONC 34 G/DL (32-36); MEAN CORPUSCULAR VOLUME 92 FL (80-99); MEAN PLATELET VOLUME 9.8 FL (7.4-10.4); MONOCYTES # (AUTO) 0.4 X 10^3 (0.0-1.0); MONOCYTES % (AUTO) 9 % (0-12); NEUTROPHILS # (AUTO) 2.4 X 10^3 (1.8-7.8); NEUTROPHILS % (AUTO) 60 % (42-75); PLATELET COUNT 227 10^3/uL (130-400)
== END 2020-01-23 | disposition home or self-care (01) ==
LOC: ONC 13:46
PROVIDERS: ATTEND Internal Medicine Hematology & Oncology
DX: Z45.2 Encounter for adjustment and management of vascular access device (principal); C20 Malignant neoplasm of rectum; C21.1 Malignant neoplasm of anal canal; N83.202 Unspecified ovarian cyst, left side; Z79.899 Other long term (current) drug therapy
CPT/HCPCS: 80053; 80061; 82378; 85025; 96523; 99213

== ENCOUNTER → 2020-01-28 | Outpatient (CLI) | payer MEDICARE, OTHER ==
--- NOTE | 2020-01-28 16:20 | Diagnostic Imaging Report ---
EXAMINATION: Digital mammogram bilateral screening with CAD. INDICATION: Screening. COMPARISON: 01/23/2019, 01/15/2018, and 01/12/2017. PERSONAL HISTORY: At this time, there are no current complaints. FINDINGS: The fibroglandular tissue in both breasts is heterogeneously dense. This does limit the sensitivity of this exam. Overall, there does not appear to have been any significant change when compared to the prior study. No primary or secondary sign of malignancy is noted. IMPRESSION: There is no radiographic evidence for malignancy. ACR BI-RADS Category 1: Negative. Result letter will be mailed to the patient. Note: At least 10% of breast cancer is not imaged by mammography. Dictated by: Dictated on workstation # [id number]
== END ==
LOC: RAD 09:15
PROVIDERS: ATTEND Family Medicine
DX: Z12.31 Encounter for screening mammogram for malignant neoplasm of breast (principal)
CPT/HCPCS: 77063; 77067

== ENCOUNTER 2020-04-22 11:17 | Outpatient (RCR) | payer MEDICARE, OTHER ==
[~2020-04-22 11:17] MED LIST changes: +AMLO-250 PO; -AMLO5TAB9 PO
== END 2020-04-27 | disposition home or self-care (01) ==
LOC: ONC 11:17
PROVIDERS: ATTEND Internal Medicine Hematology & Oncology
DX: Z45.2 Encounter for adjustment and management of vascular access device (principal); C20 Malignant neoplasm of rectum; C21.1 Malignant neoplasm of anal canal; N83.202 Unspecified ovarian cyst, left side
CPT/HCPCS: 96523

== ENCOUNTER 2020-06-17 09:26 | Outpatient (RCR) | payer MEDICARE, OTHER ==
[2020-05-19 10:29] LABS: BASOPHILS % (AUTO) 1 % (0-10); EOSINOPHILS # (AUTO) 0.1 10^3/uL (0.0-0.3); EOSINOPHILS % (AUTO) 2 % (0-10); HEMATOCRIT 39 % (35-52); HEMOGLOBIN 12.8 g/dL (11.5-16.0); LYMPHOCYTES % (AUTO) 19 % (12-44); MEAN CORPUSCULAR HEMOGLOBIN 31 pg (25-34); MEAN CORPUSCULAR HGB CONC 33 g/dL (32-36); MEAN CORPUSCULAR VOLUME 94 fL (80-99); MEAN PLATELET VOLUME 9.9 fL (9.0-12.2); MONOCYTES # (AUTO) 0.4 10^3/uL (0.0-1.0); MONOCYTES % (AUTO) 8 % (0-12); NEUTROPHILS # (AUTO) 3.7 10^3/uL (1.8-7.8); NEUTROPHILS % (AUTO) 70 % (42-75); PLATELET COUNT 179 10^3/uL (130-400); WHITE BLOOD COUNT 5.3 10^3/uL (4.3-11.0)
[2020-05-19 10:47] LABS: ALANINE AMINOTRANSFERASE 21 U/L (0-55); ALBUMIN 4.1 GM/DL (3.2-4.5); ALKALINE PHOSPHATASE 42 U/L (40-136); BILIRUBIN,TOTAL 0.5 MG/DL (0.1-1.0); BUN/CREATININE RATIO 22; CALCIUM 9.4 MG/DL (8.5-10.1); CARBON DIOXIDE 23 MMOL/L (21-32); CHLORIDE 109 MMOL/L (98-107); CREATININE SERUM 0.82 MG/DL (0.60-1.30); GFR ESTIMATED > 60; GLUCOSE 89 MG/DL (70-105); POTASSIUM 3.9 MMOL/L (3.6-5.0); SODIUM 142 MMOL/L (135-145); TOTAL PROTEIN 6.8 GM/DL (6.4-8.2)
[2020-06-17] MEDS ORDERED: ALTEPLASE 2 MG (CATHFLO) CANCER CENTER IV ONE (09:45)
[2020-08-05] MEDS ORDERED: ASPI-999 PO (09:40)
[2020-08-05] MEDS ORDERED: MULT-974 PO (09:40)
[2020-08-05] MEDS ORDERED: CALC-140 PO (09:40)
== END 2020-08-17 | disposition home or self-care (01) ==
LOC: ONC 09:26
PROVIDERS: ATTEND Internal Medicine Hematology & Oncology
DX: Z45.2 Encounter for adjustment and management of vascular access device (principal); C20 Malignant neoplasm of rectum; C21.1 Malignant neoplasm of anal canal; N83.202 Unspecified ovarian cyst, left side
CPT/HCPCS: 36591; 36593; 80053; 82378; 85025; 99213

== ENCOUNTER → 2020-06-19 | Outpatient (CLI) | payer MEDICARE, OTHER ==
[~2020-06-19] MED LIST changes: +CATHETER FLUSH 10 ML SYR IV PRN; +IOHEXOL 300 MG/ML 50 ML (OMNIPAQUE 300) VIAL IV ONE
--- NOTE | 2020-06-19 15:54 | Diagnostic Imaging Report ---
INDICATION: Malfunctioning left chest wall port. The patient was brought to the fluoroscopy suite, placed on the table in the supine position. The port was accessed by the radiology nurse. A small amount of Omnipaque 300 contrast was injected during fluoroscopic observation. A total of 43 seconds of fluoroscopic time was utilized. Preliminary radiograph demonstrates the left chest wall port with tip overlying the SVC. No interruption or kinking of the port tubing is identified. Early images demonstrate some collection of contrast outside the lumen of the catheter proximally. This is along the lateral aspect of the left subclavian. It is consistent with a hole in the catheter. No definite free flow of contrast was seen from the catheter tip. IMPRESSION: There appears to be a hole in the left chest wall port proximally, as described. Dictated by: Dictated on workstation # [id number]
== END ==
LOC: RAD 13:39
PROVIDERS: ATTEND Internal Medicine Hematology & Oncology
DX: T82.599A Other mechanical complication of unspecified cardiac and vascular devices and implants, initial encounter (principal); C20 Malignant neoplasm of rectum
CPT/HCPCS: 36598

== ENCOUNTER 2020-08-05 05:44 | Outpatient (CLI) | payer MEDICARE, OTHER ==
[~2020-08-05] VITALS: Ht 177.8 cm; Wt 86.3 kg
[~2020-08-05 05:44] MED LIST changes: -CATHETER FLUSH 10 ML SYR IV PRN; -IOHEXOL 300 MG/ML 50 ML (OMNIPAQUE 300) VIAL IV ONE
[2020-08-05] MEDS ORDERED: MULT-974 PO (09:40)
[2020-08-05] MEDS ORDERED: ASPI-999 PO (09:40)
[2020-08-05] MEDS ORDERED: CALC-140 PO (09:40)
== END 2020-08-05 11:01 ==
LOC: PREOP 05:44
PROVIDERS: ATTEND Surgery
DX: Z01.812 Encounter for preprocedural laboratory examination (principal); Z12.11 Encounter for screening for malignant neoplasm of colon; Z85.038 Personal history of other malignant neoplasm of large intestine; Z85.048 Personal history of other malignant neoplasm of rectum, rectosigmoid junction, and anus

== ENCOUNTER 2020-08-12 08:57 | Day surgery (SDC) | payer MEDICARE, OTHER ==
[2020-08-12] VITALS (13 sets, daily range): BP systolic 87–142; BP diastolic 45–84
[~2020-08-12] VITALS: Ht 177.8 cm; Wt 86.3 kg
[~2020-08-12 08:57] MED LIST changes: +ASPI-999 PO; +CALC-140 PO; +MULT-974 PO
[2020-08-12] MEDS ORDERED: LACTATED RINGERS 1,000 ML IV STA (09:06)
[2020-08-12] MEDS ORDERED: LIDOCAINE JELLY 2% 6 ML SYRINGE MM PRN (09:15)
[2020-08-12] MEDS ORDERED: LIDOCAINE JELLY 2% 6 ML SYRINGE ONE (09:44)
[2020-08-12] MEDS ORDERED: fentaNYL INJ 100 MCG/2 ML AMP ONE ×2 (09:44)
[2020-08-12] MEDS ORDERED: MIDAZOLAM 5 MG/5 ML (VERSED) VIAL ONE ×2 (09:44)
--- NOTE | 2020-08-12 09:45 | Conscious Sedation/ASA ---
Conscious Sedation Pre-Proced Time 09:00 ASA Score 2 For ASA 3 and 4: Consider anesthesia and medical clearance. Also, for patients with a history of failed moderate sedation consider anesthesia. Airway Lungs Heart ASA score ASA 1: a normal healthy patient ASA 2: a patient with a mild systemic disease (mid diabetes, controlled hypertension, obesity ASA 3: a patient with a severe systemic disease that limits activity (angina, COPD, prior Myocardial infarction) ASA 4: a patient with an incapacitating disease that is a constant threat to life (CHF, renal failure) ASA 5: a moribund patient not expected to survive 24 hrs. (ruptured aneurysm) ASA 6: a declared brain- patient whose organs are being harvested. For emergent operations, add the letter E after the classification Mallampati Classification Grade 2 Sedation Plan Analgesia, Amnesia, Plan communicated to team members, Discussed options with patient/fam, Discussed risks with patient/fam The patient is an appropriate candidate to undergo the planned procedure, sedation, and anesthesia. The patient immediately re-assessed prior to indication. GABRIELLE COOK MD Aug 12, 2020 09:45
--- NOTE | 2020-08-12 09:46 | Progress Note-Pre Operative ---
Pre-Operative Progress Note H&P Reviewed The H&P was reviewed, patient examined and no changes noted. Date Seen by Provider: Aug 12, 2020 Time Seen by Provider: 09:00 Date H&P Reviewed: Aug 12, 2020 Time H&P Reviewed: 09:00 Pre-Operative Diagnosis: hx rectal an anal canal scc GABRIELLE COOK MD Aug 12, 2020 09:46
--- NOTE | 2020-08-12 09:49 | Discharge Inst-Surgical ---
D/C Lap Instructions-JOEY Follow Up Activity as tolerated High Fiber Diet 25g or more per day Avoid Alcohol, Caffeine, Spicy Hickory and Acid foods. Drink 64 fluid oz or more of fluids per day. Symptoms to Report: Fever over 101 degree F, Nausea/Vomiting If any problems/questions: Contact your physician or go to Emergency Room GABRIELLE COOK MD Aug 12, 2020 09:49
[2020-08-12] MEDS ORDERED: ACETAMINOPHEN 325 MG TABLET PO PRN (10:00)
[2020-08-12] MEDS ORDERED: ONDANSETRON 4 MG/2 ML (SDV) Z0FRAN IVP PRN (10:00)
[2020-08-12] MEDS ORDERED: HYDROcodone/APAP 5 MG/325 MG (LORTAB) TAB PO PRN (10:00)
[2020-08-12] MEDS ORDERED: morphine INJ 10 MG/ML 1ML (SYR OR VIAL) IVP PRN ×2 (10:00)
[2020-08-12] MEDS: fentaNYL INJ 100 MCG/2 ML AMP IVP PRN ×2 (10:38→10:47)
[2020-08-12] MEDS: MIDAZOLAM 10 MG/2 ML (VERSED) VIAL IVP PRN ×3 (10:45→10:52)
[2020-08-12] MEDS ORDERED: fentaNYL INJ 100 MCG/2 ML AMP IVP ONE (11:15)
--- NOTE | 2020-08-12 17:04 | OPERATIVE REPORT ---
DATE OF SERVICE: 08/12/2020 ADMITTING PRIMARY CARE PHYSICIAN: Angie Sloan DO PREOPERATIVE DIAGNOSES: History of rectal adenocarcinoma and anal canal squamous cell cancer. POSTOPERATIVE DIAGNOSES: Mild chronic stage II external and internal hemorrhoids. PROCEDURE: Colonoscopy. SURGEON: Gabrielle Cook MD ANESTHESIA: Conscious sedation. ESTIMATED BLOOD LOSS: Minimal. FINDINGS: Same as postoperative diagnoses. DISPOSITION: The patient tolerated the procedure well. INDICATIONS: The patient is a 75-year-old female in need of a screening colonoscopy. She has a history of anal canal squamous cell cancer and underwent Gage protocol in 2011. She was also found to have an adenocarcinoma of the distal rectum in 2014 and underwent a robotic low anterior colorectal resection as well as a diverting loop ileostomy, which was later reversed. Since that time, she has had followup colonoscopies. She reports her last one was approximately 2 years ago, which was normal. She states she is otherwise doing well, does not report any red blood per rectum nor any dark tarry stools as well as no abdominal pain or inadvertent weight loss. DESCRIPTION OF PROCEDURE: The patient was brought to the endoscopy suite, laid in the left lateral decubitus position. After adequate IV pain and sedative medications and conscious sedation anesthesia, a digital rectal examination was performed. Mild chronic stage II external and internal hemorrhoids were identified, which were not actively edematous nor inflamed and no bleeding. Normal sphincter tone was felt and there were no palpable masses. The endoscope was then intubated into anus and rectum gently insufflated. The area of anastomosis low in the rectum was identified and completely normal with no recurrent tumors as well as no strictures. The endoscope was then advanced into the remainder of the previous sigmoid colon where a moderate sigmoid diverticulosis identified. There were no mucosal inflammatory changes to indicate any active diverticulitis. The endoscope was then advanced to the remainder of the descending, transverse and ascending colon to the cecum. These segments were normal. There were no polyps or any neoplasms identified throughout the colon or rectum. The endoscope was then slowly withdrawn while taking a second look and suctioning of residual air with no additional findings. The patient tolerated the procedure well. We will recommend a high fiber diet with incorporation of a fiber supplement, which should equal or exceed 25 grams daily as well as significant amounts of water to promote soft stools on a daily basis. This is her third negative colonoscopy and her initial diagnosis was in 2014 and if she is asymptomatic, she does not need another colonoscopy for another 5 years. Job ID: [id number] DocumentID: [id number] Dictated Date: 08/12/2020 11:02:05 Rug Cleaner Helper Date: 08/12/2020 17:04:14 Dictated By: GABRIELLE COOK MD
== END 2020-08-12 12:00 | disposition home or self-care (01) ==
LOC: ENDO 08:57
PROVIDERS: ATTEND Surgery
DX: Z12.11 Encounter for screening for malignant neoplasm of colon (principal); K64.4 Residual hemorrhoidal skin tags; K64.1 Second degree hemorrhoids; K57.30 Diverticulosis of large intestine without perforation or abscess without bleeding; E78.00 Pure hypercholesterolemia, unspecified; F41.9 Anxiety disorder, unspecified; Z90.49 Acquired absence of other specified parts of digestive tract; Z92.3 Personal history of irradiation; Z90.710 Acquired absence of both cervix and uterus; Z85.038 Personal history of other malignant neoplasm of large intestine; Z85.048 Personal history of other malignant neoplasm of rectum, rectosigmoid junction, and anus; Z93.2 Ileostomy status

== ENCOUNTER 2020-11-10 09:42 | Outpatient (RCR) | payer MEDICARE, OTHER ==
[2020-11-04 13:02] LABS: BASOPHILS % (AUTO) 1 % (0-10); EOSINOPHILS # (AUTO) 0.1 10^3/uL (0.0-0.3); EOSINOPHILS % (AUTO) 2 % (0-10); HEMATOCRIT 40 % (35-52); HEMOGLOBIN 13.1 g/dL (11.5-16.0); LYMPHOCYTES # (AUTO) 1.1 10^3/uL (1.0-4.0); LYMPHOCYTES % (AUTO) 22 % (12-44); MEAN CORPUSCULAR HEMOGLOBIN 31 pg (25-34); MEAN CORPUSCULAR HGB CONC 33 g/dL (32-36); MEAN CORPUSCULAR VOLUME 94 fL (80-99); MEAN PLATELET VOLUME 9.7 fL (9.0-12.2); MONOCYTES # (AUTO) 0.4 10^3/uL (0.0-1.0); MONOCYTES % (AUTO) 8 % (0-12); NEUTROPHILS # (AUTO) 3.5 10^3/uL (1.8-7.8); NEUTROPHILS % (AUTO) 67 % (42-75); PLATELET COUNT 221 10^3/uL (130-400); WHITE BLOOD COUNT 5.2 10^3/uL (4.3-11.0)
[2020-11-04 13:33] LABS: ALANINE AMINOTRANSFERASE 28 U/L (0-55); ALBUMIN 4.3 GM/DL (3.2-4.5); ALKALINE PHOSPHATASE 49 U/L (40-136); BILIRUBIN,TOTAL 0.6 MG/DL (0.1-1.0); BUN/CREATININE RATIO 18; CARBON DIOXIDE 29 MMOL/L (21-32); CHLORIDE 106 MMOL/L (98-107); GFR ESTIMATED > 60; GLUCOSE 94 MG/DL (70-105); POTASSIUM 3.9 MMOL/L (3.6-5.0); SODIUM 140 MMOL/L (135-145); TOTAL PROTEIN 6.8 GM/DL (6.4-8.2)
== END 2021-02-02 | disposition home or self-care (01) ==
LOC: ONC 09:42
PROVIDERS: ATTEND Internal Medicine Hematology & Oncology
DX: C20 Malignant neoplasm of rectum (principal); C21.1 Malignant neoplasm of anal canal; C18.2 Malignant neoplasm of ascending colon; N83.202 Unspecified ovarian cyst, left side; E04.1 Nontoxic single thyroid nodule; I10 Essential (primary) hypertension; E78.5 Hyperlipidemia, unspecified; Z90.49 Acquired absence of other specified parts of digestive tract; Z87.891 Personal history of nicotine dependence
CPT/HCPCS: 80053; 82378; 85025; 99213

== ENCOUNTER → 2020-11-30 | Outpatient (CLI) | payer MEDICARE, OTHER ==
--- NOTE | 2020-11-30 15:20 | Diagnostic Imaging Report ---
PROCEDURE: US Thyroid. TECHNIQUE: Multiple Real-time grayscale images were obtained of the thyroid in various projections. INDICATION: Thyroid nodule. FINDINGS: The right lobe measures approximately 1.5 x 4.5 cm. The left lobe measures approximately 4 x 6 cm. There is a 1 cm hypoechoic nodule present on the right. There is a 4 x 5 cm heterogeneous nodule present on the left which is similar to the prior exam from 12/06/2019. No new abnormality has developed in the interval. IMPRESSION: Stable thyroid nodules. If no biopsy is performed on the left thyroid nodule, continued followup is recommended. Dictated by: Dictated on workstation # [id number]
== END ==
LOC: RAD 10:36
PROVIDERS: ATTEND Internal Medicine Endocrinology, Diabetes & Metabolism
DX: E04.2 Nontoxic multinodular goiter (principal)
CPT/HCPCS: 36415; 76536; 84443

== ENCOUNTER → 2021-01-28 | Outpatient (CLI) | payer MEDICARE, OTHER ==
--- NOTE | 2021-01-28 12:44 | Diagnostic Imaging Report ---
INDICATION: Routine screening. COMPARISON is made with prior mammograms from 01/28/2020 and 01/23/2019. 2-D and 3-D bilateral screening mammography was performed with CAD. Both breasts remain heterogeneously dense, limiting the sensitivity of mammography. No mass or malignant-appearing microcalcifications are seen. Axillae are unremarkable. IMPRESSION: BI-RADS Category 1. No mammographic features suspicious for malignancy are identified. ACR BI-RADS Category 1: Negative. Result letter will be mailed to the patient. Note: At least 10% of breast cancer is not imaged by mammography. Dictated by: Dictated on workstation # [id number]
== END ==
LOC: RAD 08:00
PROVIDERS: ATTEND Family Medicine
DX: Z12.31 Encounter for screening mammogram for malignant neoplasm of breast (principal)
CPT/HCPCS: 77063; 77067

== ENCOUNTER 2021-02-22 08:53 | Outpatient (RCR) | payer MEDICARE, OTHER ==
[~2021-02-22 08:53] MED LIST changes: +BENA-3 PO; -BENA20TA7 PO; -BENA5TAB3 PO; +BENA5TAB36 PO
== END 2021-04-30 | disposition home or self-care (01) ==
LOC: ONC 08:53
PROVIDERS: ATTEND Internal Medicine Hematology & Oncology
DX: C20 Malignant neoplasm of rectum (principal); C21.1 Malignant neoplasm of anal canal; C18.2 Malignant neoplasm of ascending colon; E04.1 Nontoxic single thyroid nodule; I10 Essential (primary) hypertension; E78.5 Hyperlipidemia, unspecified; Z90.49 Acquired absence of other specified parts of digestive tract; Z87.891 Personal history of nicotine dependence
CPT/HCPCS: 99213

== ENCOUNTER 2021-11-10 09:21 | Outpatient (RCR) | payer MEDICARE, OTHER ==
[2021-11-05 10:02] LABS: BASOPHILS % (AUTO) 1 % (0-10); EOSINOPHILS # (AUTO) 0.2 10^3/uL (0.0-0.3); EOSINOPHILS % (AUTO) 3 % (0-10); HEMATOCRIT 39 % (35-52); LYMPHOCYTES # (AUTO) 1.2 10^3/uL (1.0-4.0); LYMPHOCYTES % (AUTO) 25 % (12-44); MEAN CORPUSCULAR HEMOGLOBIN 31 pg (25-34); MEAN CORPUSCULAR HGB CONC 33 g/dL (32-36); MEAN CORPUSCULAR VOLUME 94 fL (80-99); MEAN PLATELET VOLUME 9.3 fL (9.0-12.2); MONOCYTES # (AUTO) 0.5 10^3/uL (0.0-1.0); MONOCYTES % (AUTO) 10 % (0-12); NEUTROPHILS # (AUTO) 2.9 10^3/uL (1.8-7.8); NEUTROPHILS % (AUTO) 61 % (42-75); PLATELET COUNT 202 10^3/uL (130-400); WHITE BLOOD COUNT 4.7 10^3/uL (4.3-11.0)
[2021-11-05 10:20] LABS: ALBUMIN 4.1 GM/DL (3.2-4.5); CALCIUM 9.6 MG/DL (8.5-10.1); CREATININE SERUM 0.83 MG/DL (0.60-1.30); POTASSIUM 4.2 MMOL/L (3.6-5.0); TOTAL PROTEIN 6.6 GM/DL (6.4-8.2)
== END 2021-11-28 | disposition home or self-care (01) ==
LOC: ONC 09:21
PROVIDERS: ATTEND Internal Medicine Hematology & Oncology
DX: C18.7 Malignant neoplasm of sigmoid colon (principal); C21.0 Malignant neoplasm of anus, unspecified; I10 Essential (primary) hypertension; E04.1 Nontoxic single thyroid nodule; E78.2 Mixed hyperlipidemia; E66.9 Obesity, unspecified; Z98.890 Other specified postprocedural states; Z85.820 Personal history of malignant melanoma of skin; Z90.49 Acquired absence of other specified parts of digestive tract
CPT/HCPCS: 36415; 80053; 82378; 85025

== ENCOUNTER → 2021-12-03 | Outpatient (CLI) | payer MEDICARE, OTHER ==
--- NOTE | 2021-12-03 17:56 | Diagnostic Imaging Report ---
PROCEDURE: US thyroid. TECHNIQUE: Multiple real-time grayscale images were obtained of the thyroid in various projections. INDICATION: Thyroid nodules. COMPARISON: 11/30/2020. FINDINGS: The right thyroid lobe measured 4.5 x 1.6 x 1.4 cm. Barely perceptible isoechoic 8 mm nodule in the lower pole noted. The left thyroid lobe measures 6.6 x 2.9 x 4.9 cm and is diffusely heterogeneous and dominated by 5.7 x 3.8 x 3.9 cm mixed echotexture solid vascularized mass, unchanged from prior. IMPRESSION: Very large 5.7 cm mixed echotexture left lobe solid mass showed no significant change from prior. Dictated by: Dictated on workstation # [id number]
== END ==
LOC: RAD 14:27
PROVIDERS: ATTEND Internal Medicine Endocrinology, Diabetes & Metabolism
DX: E04.2 Nontoxic multinodular goiter (principal)
CPT/HCPCS: 76536

== ENCOUNTER → 2022-02-02 | Outpatient (CLI) | payer MEDICARE, OTHER ==
--- NOTE | 2022-02-02 12:07 | Diagnostic Imaging Report ---
INDICATION: Routine screening. COMPARISON: 01/28/2021 and 01/28/2020. TECHNIQUE: 2D and 3D bilateral screening mammography was performed with CAD. FINDINGS: Both breasts are heterogeneously dense, limiting the sensitivity of mammography. The parenchymal pattern is stable. No mass or malignant-appearing microcalcifications are seen. The axillae are unremarkable. IMPRESSION: No mammographic features suspicious for malignancy are identified. ACR BI-RADS Category 1: Negative. Result letter will be mailed to the patient. Note: At least 10% of breast cancer is not imaged by mammography. Dictated by: Dictated on workstation # [id number]
== END ==
LOC: RAD 09:50
PROVIDERS: ATTEND Family Medicine
DX: Z12.31 Encounter for screening mammogram for malignant neoplasm of breast (principal)
CPT/HCPCS: 77063; 77067

== ENCOUNTER 2022-11-09 12:52 | Outpatient (RCR) | payer MEDICARE, OTHER ==
[2022-11-02 09:02] LABS: BASOPHILS # (AUTO) 0.1 10^3/uL (0.0-0.1); BASOPHILS % (AUTO) 1 % (0-10); EOSINOPHILS # (AUTO) 0.1 10^3/uL (0.0-0.3); EOSINOPHILS % (AUTO) 2 % (0-10); HEMATOCRIT 41 % (35-52); HEMOGLOBIN 13.5 g/dL (11.5-16.0); LYMPHOCYTES # (AUTO) 1.4 10^3/uL (1.0-4.0); LYMPHOCYTES % (AUTO) 26 % (12-44); MEAN CORPUSCULAR HEMOGLOBIN 31 pg (25-34); MEAN CORPUSCULAR HGB CONC 33 g/dL (32-36); MEAN CORPUSCULAR VOLUME 93 fL (80-99); MEAN PLATELET VOLUME 9.4 fL (9.0-12.2); MONOCYTES # (AUTO) 0.5 10^3/uL (0.0-1.0); MONOCYTES % (AUTO) 9 % (0-12); NEUTROPHILS # (AUTO) 3.4 10^3/uL (1.8-7.8); NEUTROPHILS % (AUTO) 62 % (42-75); PLATELET COUNT 194 10^3/uL (130-400); WHITE BLOOD COUNT 5.4 10^3/uL (4.3-11.0)
[2022-11-02 09:24] LABS: ALBUMIN 4.4 GM/DL (3.2-4.5); BILIRUBIN,TOTAL 0.5 MG/DL (0.1-1.0); CALCIUM 9.7 MG/DL (8.5-10.1); CREATININE SERUM 0.83 MG/DL (0.60-1.30); POTASSIUM 3.6 MMOL/L (3.6-5.0); TOTAL PROTEIN 7.2 GM/DL (6.4-8.2)
== END 2022-11-28 | disposition home or self-care (01) ==
LOC: ONC 12:52
PROVIDERS: ATTEND Internal Medicine Hematology & Oncology
DX: C21.0 Malignant neoplasm of anus, unspecified (principal); C18.7 Malignant neoplasm of sigmoid colon; Z86.006 Personal history of melanoma in-situ; I10 Essential (primary) hypertension; E04.1 Nontoxic single thyroid nodule; N83.209 Unspecified ovarian cyst, unspecified side
CPT/HCPCS: 80053; 82378; 85025

== ENCOUNTER → 2023-02-17 | Outpatient (CLI) | payer MEDICARE, OTHER ==
--- NOTE | 2023-02-17 10:05 | Diagnostic Imaging Report ---
Indication: Routine screening. Comparison is made with prior mammograms 02/02/2022 and 01/28/2021. 2-D and 3-D bilateral screening mammography was performed with CAD. Both breasts are heterogeneously dense, limiting the sensitivity of mammography. The parenchymal pattern is stable. No mass or malignant-appearing microcalcifications are seen. Axillae are unremarkable. IMPRESSION: BI-RADS Category 1 No mammographic features suspicious for malignancy are identified. ACR BI-RADS Category 1: Negative. Result letter will be mailed to the patient. Note: At least 10% of breast cancer is not imaged by mammography. Dictated by: Dictated on workstation # [id number]
--- NOTE | 2023-02-17 16:35 | Diagnostic Imaging Report ---
PROCEDURE: US Thyroid. TECHNIQUE: Multiple Real-time grayscale images were obtained of the thyroid in various projections. INDICATION: Thyroid nodules. COMPARISON: 12/03/2021, 11/30/2020, 12/03/2018, and 08/18/2015. FINDINGS: The right lobe of the thyroid gland measures 4.4 x 1.3 x 1.3 cm. A solid round isoechoic nodule measuring 0.9 x 0.9 x 0.7 cm is again identified within the mid right thyroid lobe. This has not significantly changed since at least 2015. No new right thyroid nodules. The left lobe of the thyroid gland is enlarged measuring 5.9 x 3.8 x 4.5 cm. The majority of the left thyroid lobe has been replaced by a heterogeneous solid iso to hypoechoic nodule measuring 5.2 x 3.1 x 4.4 cm. This appears relatively similar to prior imaging dating back to at least 2015. No new left thyroid nodules. The isthmus is unremarkable. IMPRESSION: Large 5.2 cm left thyroid nodule, not significantly changed since 2016, suggesting a benign process. Stable 0.9 cm right thyroid nodule, unchanged since 2016, and consistent with a benign process. No new thyroid nodule. Dictated by: Dictated on workstation # [id number]
== END ==
LOC: RAD 08:15
PROVIDERS: ATTEND Family Medicine
DX: Z12.31 Encounter for screening mammogram for malignant neoplasm of breast (principal); E04.1 Nontoxic single thyroid nodule
CPT/HCPCS: 76536; 77063; 77067

== ENCOUNTER → 2023-03-28 | Outpatient (CLI) | payer MEDICARE, OTHER ==
--- NOTE | 2023-03-28 15:12 | Diagnostic Imaging Report ---
INDICATION: Postmenopausal screening COMPARISON: 02/12/2019 FINDINGS: AP Spine L1-L4: [BMD (g/cm2): 0.892] [T-Score: -2.6] [Z-Score: -1.6] [BMD Previous: 1.013] [BMD % Change: -11.9*] LT Hip Neck: [BMD (g/cm2): 0.882] [T-Score: -1.1] [Z-Score: 0.3] LT Hip Total: [BMD (g/cm2):0.909] [T-Score:-0.8] [Z-Score: 0.4] [BMD Previous: 0.960] [BMD % Change: -5.3*] RT Hip Neck: [BMD (g/cm2):0.913] [T-Score:-0.9] [Z-Score:0.5] RT Hip Total: [BMD (g/cm2):0.924] [T-score:-0.7] [Z-Score:0.5] [BMD Previous:1.007] [BMD % Change:-8.2*] *Indicates significant change from prior examination based on 95% confidence level. World Health Organization criteria for BMD interpretation classify patients as Normal (T-score at or above -1.0), Osteopenic (T-score between -1.0 and -2.5) or Osteoporotic (T-score at or below -2.5). LIMITATIONS AND MODIFICATION: None. FRACTURE RISK (FRAX SCORE): The ten year probability of (%): Major Osteoporotic Fracture: [10.4] Hip Fracture: [1.8] IMPRESSION: 1. Osteoporosis. 2. Bone mineral density has decreased by a statistically significant amount, as detailed above. 3. See below National Osteoporosis Foundation guidelines on when to potentially initiate pharmacologic therapy. Based on the National Osteoporosis Foundation Guidelines, pharmacologic treatment should be initiated in any of the following, unless clinical conditions suggest otherwise: * Any patient with prior fragility fracture of the hip or vertebrae. A spine fracture indicates 5X risk for subsequent spine fracture and 2X risk for subsequent hip fracture. * Osteoporosis (T-score <-2.5). * Postmenopausal women and men age 50 and older with low bone mass/osteopenia (T-score between -1.0 and -2.5) by DXA and 10-year major osteoporotic fracture greater than 20% or a 10-year probability of hip fracture greater than 3%. These fracture risks are supplied above in the FRAX score, if applicable. * Clinician judgement and/or patient preferences may indicate treatment for people with 10-year fracture probabilities above or below these levels. Dictated by: Dictated on workstation # [id number]
== END ==
LOC: RAD 14:30
PROVIDERS: ATTEND Family Medicine
DX: M81.0 Age-related osteoporosis without current pathological fracture (principal)
CPT/HCPCS: 77080